=== PATIENT | female | born 1970 | race Caucasian/White ===

== ENCOUNTER 2017-11-19 02:34 | Emergency (ER) | payer MEDICARE, MEDICAID ==
[2017-11-19 03:49] LABS: % BASOPHILS 0.7 % (0.0-2.0); % EOSINOPHILS 2.7 % (0.0-5.0); % LYMPHOCYTES 25.2 % (20.0-50.0); % MONOCYTES 7.7 % (2.0-10.0); % NEUTROPHILS 63.7 % (40.0-80.0); EOSINOPHILE ABSOLUTE 0.2 Th/cmm (0.1-0.4); HEMATOCRIT 33.9 % (41.0-60); HEMOGLOBIN 11.2 gm/dL (12-16); LYMPHOCYTE ABSOLUTE 1.7 Th/cmm (1.5-3.0); MEAN CELL VOLUME 75.4 fl (81-100); MEAN CORPUSCULAR HGB CONC 33.1 pg (28.0-36.0); MONOCYTE ABSOLUTE 0.5 Th/cmm (0.3-1.0); NEUTROPHILE ABSOLUTE 4.5 Th/cmm (1.8-8.0); PLATELET COUNT 251 Th/cmm (150-400); RED CELL DISTRIBUTION WIDTH 16.9 % (11.5-20.0); WHITE BLOOD COUNT 6.9 Th/cmm (4.8-10.8)
--- NOTE | 2017-11-19 03:52 | ED Physician Chart ---
ED Chief Complaint/HPI - Patient Information Date Seen:: 11/19/17 Time Seen:: 02:47 Chief Complaint:: LOW BLOOD SUGARS History of Present Illness:: THIS IS A 47 YO FEMALE DIABETIC WHO IS CONCERN ABOUT HAVING A LOW BLOOD SUGAR EACH TIME THAT SHE GIVE HERSELF INSULIN. SHE ALSO STATES THAT SHE HAS HYPERTENSION AND IS OBESE. SHE ADMITS TO SMOKING AND DRINKING. SHE DENIES CHEST PAIN AND ABDOMINAL PAIN. Allergies:: Allergies Allergy/AdvReac Type Severity Reaction Status Date / Time No Known Allergies Allergy Verified 11/19/17 02:54 Vitals:: Vital Signs - 8 hr 11/19/17 02:35 Temp 97.9 F HR 100 RR 20 BP 106/65 O2 Sat % 100 Historian:: Patient Review:: Nurse's Note Reviewed ED Review of Systems - Review of Systems General/Constitutional: No fever, No chills, No weight loss, No weakness, No diaphoresis, No edema, No loss of appetite Skin: No skin lesions, No rash, No bruising Head: No headache, No light-headedness Eyes: No loss of vision, No pain, No diplopia ENT: No earache, No nasal drainage, No sore throat, No tinnitus Neck: No neck pain, No swelling, No thyromegaly, No stiffness, No mass noted Cardio Vascular: No chest pain, No palpitations, No PND, No orthopnea, No edema Pulmonary: No SOB, No cough, No sputum, No wheezing GI: No nausea, No vomiting, No diarrhea, No pain, No melena, No hematochezia, No constipation, No hematemesis G/U: No dysuria, No frequency, No hematuria Musculoskeletal: No bone or joint pain, No back pain, No muscle pain Endocrine: No polyuria, No polydipsia, Other (LOW SUGAR EPISODES AFTER SHE GIVES HERSELF INSULIN) Psychiatric: No prior psych history, No depression, No anxiety, No suicidal ideation Hematopoietic: No bruising, No lymphadenopathy Allergic/Immuno: No urticaria, No angioedema Neurological: No syncope, No focal symptoms, No weakness, No paresthesia, No headache, No seizure, No dizziness, No confusion, No vertigo ED Past Medical History - Past Medical History Obtainable: Yes Past Medical History: HTN, DM Family History: None Social History: Smoker, Alcohol, No Drug Use Surgical History: Cholecystectomy, , other (RIGHT KNEE SURGERY) Family Medical History - Family Member Mother History Unknown: Yes ED Physical Exam - Physical Examination General/Constitutional: Awake, Well-developed, well-nourished, Alert, No distress, GCS 15, Non-toxic appearing, Ambulatory Other Gen/Cons comments:: OBESE Head: Atraumatic Eyes: Lids, conjuctiva normal, PERRL, EOMI Skin: Nl inspection, No rash, No skin lesions, No ecchymosis, Well hydrated, No lymphadenopathy ENMT: External ears, nose nl, Nasal exam nl, Lips, teeth, gums nl Neck: Nontender, Full ROM w/o pain, No JVD, No nuchal rigidity, No bruit, No mass, No stridor Respiratory: Nl effort/Exclusion, Clear to Auscultation, No Wheeze/Rhonchi/Rales Cardio Vascular: RRR, No murmur, gallop, rubs, NL S1 S2 GI: No tenderness/rebounding/guarding, No organomegaly, No hernia, Normal BS's, Nondistended, No mass/bruits, No McBurney tenderness : No CVA tenderness Extremities: No tenderness or effusion, Full ROM, normal strength in all extremities, No edema, Normal digits & nails Neuro/Psych: Alert/oriented, DTR's symmetric, Normal sensory exam, Normal motor strength, Judgement/insight normal, Mood normal, Normal gait, No focal deficits Misc: Normal back, No paraspinal tenderness ED Labs/Radiology/EKG Results - Lab Results Results: Abnormal Lab Results 11/19/17 11/19/17 11/19/17 03:35 03:35 03:35 WBC 6.9 RBC 4.50 Hgb 11.2 L Hct 33.9 L MCV 75.4 L MCH 25.0 L MCHC Differential 33.1 RDW 16.9 Plt Count 251 MPV 9.0 Neutrophils % 63.7 Lymphocytes % 25.2 Monocytes % 7.7 Eosinophils % 2.7 Basophils % 0.7 Sodium 138 Potassium 3.1 L Chloride 108 H Carbon Dioxide 23.4 Anion Gap 9.7 BUN 11 Creatinine 0.9 Est GFR ( Amer) > 60.0 Est GFR (Non-Af Amer) > 60.0 BUN/Creatinine Ratio 12.2 Glucose 129 H Calcium 9.1 Total Bilirubin 0.3 AST 16 ALT 15 Alkaline Phosphatase 86 Troponin I < 0.01 L Total Protein 6.7 Albumin 3.6 L Globulin 3.1 Albumin/Globulin Ratio 1.2 ED Assessment - Assessment General Assessment: HYPOGLYCEMIC EPISODES HYPOKALEMIA ED Septic Shock - . Is Septic Shock (SBP<90, OR Lactate>4 mmol\L) present?: No - <6hrs of presentation: Vital Signs: Vital Signs - 8 hr 11/19/17 02:35 Temp 97.9 F HR 100 RR 20 BP 106/65 O2 Sat % 100 ED Reassessment (Disposition) - Reassessment Reassessment Condition:: Improved - Diagnosis Diagnosis:: HYPOGLYCEMIC EPISODE LOW POTASSIUM - Aftercare/Follow up Instructions Aftercare/Follow-Up Instructions:: Counseled pt regarding lab results/diagnosis & need follow up, Refer to Discharge Instructions, Counseled pt & family regarding lab results/diagnosis & need follow up Medication Prescribed:: THE PATIENT WAS TOLD TO REDUCE HER INSULIN DOSE TO 5 UNITS IN THE BID NOVALOG AND 20 UNITS OF NOVALIN. - Patient Disposition Discharge/Transfer:: Home Condition at Disposition:: Improved ED Discharge Plan - Patient Disposition Admit/Discharge/Transfer: PT DISCHARGED HOME Condition at Disposition: Improved
[2017-11-19 04:22] LABS: ALB/GLOB RATIO 1.2 (1.0-1.8); ALBUMIN 3.6 gm/dL (3.7-5.3); ALKALINE PHOSPHATASE 86 U/L (34-104); ANION GAP 9.7 (7.0-16.0); BILIRUBIN,TOTAL 0.3 mg/dL (0.3-1.0); BUN - UREA NITROGEN 11 mg/dL (7-25); CALCIUM SERUM 9.1 mg/dL (8.6-10.3); CARBON DIOXIDE 23.4 mEq/L (21.0-31.0); CHLORIDE 108 mEq/L (98-107); CREATININE - SERUM 0.9 mg/dL (0.6-1.2); GFR AFRICAN-AMERICAN > 60.0 ml/min (>90); GFR NON AFRICAN-AMERICAN > 60.0 ml/min; GLUCOSE 129 mg/dL (70-105); POTASSIUM SERUM 3.1 mEq/L (3.5-5.1); SGOT 16 U/L (13-39); SGPT/ALT 15 U/L (7-52); SODIUM SERUM 138 mEq/L (136-145); TOTAL PROTEIN,SERUM 6.7 gm/dL (6.0-8.3)
[2017-11-19] MEDS ORDERED: Potassium Chloride Elixir 20 mEq /15 mL UDC ONE (04:31)
[2017-11-19] MEDS: Potassium Chloride Elixir 20 mEq /15 mL UDC PO ONE (04:36)
[2017-11-19 06:50] LABS: URINE MICROSCOPIC INDICATED? YES; URINE SOURCE CLEAN C
[2017-11-19 06:55] LABS: URINE BILIRUBIN NEGATIVE (NEGATIVE); URINE BLOOD NEGATIVE (NEGATIVE); URINE GLUCOSE (UA) NEGATIVE (NEGATIVE); URINE KETONE NEGATIVE (NEGATIVE); URINE LEUKOCYTE ESTERASE TRACE (NEGATIVE); URINE NITRATE NEGATIVE (NEGATIVE); URINE PROTEIN NEGATIVE (NEGATIVE); URINE UROBILINOGEN 0.2 E.U./dL (0.2 - 1.0)
[2017-11-19 06:56] LABS: URINE CLARITY CLEAR (CLEAR); URINE COLOR YELLOW
[2017-11-19 06:59] LABS: URINE EPITHELIAL CELLS MODERATE /lpf (FEW); URINE RBC 0-2 /hpf (0-5)
[2017-11-19 07:00] LABS: URINE BACTERIA 1+ /hpf (NONE SEEN)
[2017-11-19 07:04] LABS: AMPHETAMINE URINE NEGATIVE (NEGATIVE); BARBITURATES URINE NEGATIVE (NEGATIVE); BENZODIAZEPINES QUAL URINE NEGATIVE (NEGATIVE); CANNABINOID THC POSITIVE (NEGATIVE); COCAINE METABOLITE QUAL URINE NEGATIVE (NEGATIVE); METHADONE URINE NEGATIVE (NEGATIVE); METHAMPHETAMINES QUAL URINE NEGATIVE (NEGATIVE); OPIATES (MORPHINE) QUAL. URINE NEGATIVE (NEGATIVE); PHENCYCLIDINE (PCP) URINE NEGATIVE (NEGATIVE); TRICYCLICS (TCA) QUAL. URINE NEGATIVE (NEGATIVE)
== END 2017-11-19 04:50 | disposition home or self-care (01) ==
LOC: ER 02:34
DX: E11.649 Type 2 diabetes mellitus with hypoglycemia without coma (principal); E87.6 Hypokalemia; I10 Essential (primary) hypertension; F17.200 Nicotine dependence, unspecified, uncomplicated; Z90.49 Acquired absence of other specified parts of digestive tract
CPT/HCPCS: 36415-UA; 80053-TC; 80307; 81001-TC; 82948-90; 84443-TC; 84484-TC; 85025-TC; Z7502

== ENCOUNTER 2017-11-19 23:52 | Emergency (ER) | payer MEDICARE, MEDICAID ==
--- NOTE | 2017-11-20 00:39 | ED Physician Chart ---
ED Chief Complaint/HPI - Patient Information Allergies:: Allergies Allergy/AdvReac Type Severity Reaction Status Date / Time No Known Allergies Allergy Verified 11/20/17 00:21 Vitals:: Vital Signs - 8 hr 11/19/17 23:55 Temp 98.1 F HR 102 RR 20 BP 137/90 O2 Sat % 100 Historian:: Medical Records Family Medical History - Family Member Mother History Unknown: Yes ED Septic Shock - . Is Septic Shock (SBP<90, OR Lactate>4 mmol\L) present?: No - <6hrs of presentation: Vital Signs: Vital Signs - 8 hr 11/19/17 23:55 Temp 98.1 F HR 102 RR 20 BP 137/90 O2 Sat % 100
== END 2017-11-20 03:00 | disposition home or self-care (01) ==
LOC: ER 23:52
DX: E11.649 Type 2 diabetes mellitus with hypoglycemia without coma (principal)
CPT/HCPCS: 82948-90

== ENCOUNTER 2017-11-25 12:30 | Emergency (ER) | payer MEDICARE, MEDICAID ==
[~2017-11-25 12:30] MED LIST: Dextrose 50% 50 mL Abboject IVP STA
[2017-11-25] MEDS ORDERED: Dextrose 50% 50 mL Abboject IVP ONE (12:37)
[2017-11-25 13:00] LABS: % EOSINOPHILS 2.1 % (0.0-5.0); % LYMPHOCYTES 31.7 % (20.0-50.0); % MONOCYTES 6.3 % (2.0-10.0); % NEUTROPHILS 59.9 % (40.0-80.0); EOSINOPHILE ABSOLUTE 0.2 Th/cmm (0.1-0.4); HEMATOCRIT 39.8 % (41.0-60); HEMOGLOBIN 12.6 gm/dL (12-16); LYMPHOCYTE ABSOLUTE 3.2 Th/cmm (1.5-3.0); MEAN CELL VOLUME 75.5 fl (81-100); MEAN CORPUSCULAR HEMOGLOBIN 23.8 pg (27.0-31.0); MEAN CORPUSCULAR HGB CONC 31.6 pg (28.0-36.0); MEAN PLATELET VOLUME 9.7 fl; MONOCYTE ABSOLUTE 0.6 Th/cmm (0.3-1.0); NEUTROPHILE ABSOLUTE 6.1 Th/cmm (1.8-8.0); PLATELET COUNT 184 Th/cmm (150-400); RED BLOOD COUNT 5.28 Mil/cmm (3.80-5.10); RED CELL DISTRIBUTION WIDTH 16.6 % (11.5-20.0); WHITE BLOOD COUNT 10.1 Th/cmm (4.8-10.8)
[2017-11-25 13:15] LABS: ALB/GLOB RATIO 1.1 (1.0-1.8); ALBUMIN 4.3 gm/dL (3.7-5.3); ALKALINE PHOSPHATASE 94 U/L (34-104); ANION GAP 12.2 (7.0-16.0); BILIRUBIN,TOTAL 0.4 mg/dL (0.3-1.0); BUN - UREA NITROGEN 10 mg/dL (7-25); CALCIUM SERUM 9.7 mg/dL (8.6-10.3); CHLORIDE 107 mEq/L (98-107); GFR AFRICAN-AMERICAN > 60.0 ml/min (>90); GFR NON AFRICAN-AMERICAN > 60.0 ml/min; POTASSIUM SERUM 3.2 mEq/L (3.5-5.1); SGOT 22 U/L (13-39); SGPT/ALT 19 U/L (7-52); SODIUM SERUM 139 mEq/L (136-145); TOTAL PROTEIN,SERUM 8.1 gm/dL (6.0-8.3)
[2017-11-25 13:19] LABS: GLUCOSE 47 mg/dL (70-105)
[2017-11-25] MEDS ORDERED: Potassium Chloride Elixir 20 mEq /15 mL UDC PO ONE (13:23)
--- NOTE | 2017-11-25 13:23 | ED Physician Chart ---
ED Chief Complaint/HPI - Patient Information Date Seen:: 11/25/17 Time Seen:: 12:39 Chief Complaint:: LOW SUGAR History of Present Illness:: THIS IS A 47 YO FEMALE WITH RECURRENT DIFFICULTY WITH MANAGEMENT OF HER GLUCOSE LEVELS. SHE WAS SEEN HERE TWICE IN ONE DAY FOR BLOOD SUGAR MANAGEMENT BUT HAS NOT FOLLOWUP WITH ADVICE GIVEN TO HER. SHE STATES THAT HER SUGAR HAS BEEN LOW. Allergies:: Allergies Allergy/AdvReac Type Severity Reaction Status Date / Time No Known Allergies Allergy Verified 11/20/17 00:21 Vitals:: Vital Signs - 8 hr 11/25/17 12:38 Temp 98.1 F HR 90 RR 18 BP 106/61 O2 Sat % 100 Historian:: Patient Review:: Nurse's Note Reviewed ED Review of Systems - Review of Systems General/Constitutional: No fever, No chills, No weight loss, No weakness, No diaphoresis, No edema, No loss of appetite Skin: No skin lesions, No rash, No bruising Head: No headache, No light-headedness Eyes: No loss of vision, No pain, No diplopia ENT: No earache, No nasal drainage, No sore throat, No tinnitus Neck: No neck pain, No swelling, No thyromegaly, No stiffness, No mass noted Cardio Vascular: No chest pain, No palpitations, No PND, No orthopnea, No edema Pulmonary: No SOB, No cough, No sputum, No wheezing GI: No nausea, No vomiting, No diarrhea, No pain, No melena, No hematochezia, No constipation, No hematemesis G/U: No dysuria, No frequency, No hematuria Musculoskeletal: No bone or joint pain, No back pain, No muscle pain Endocrine: No polyuria, No polydipsia Psychiatric: No prior psych history, No depression, No anxiety, No suicidal ideation Hematopoietic: No bruising, No lymphadenopathy Allergic/Immuno: No urticaria, No angioedema Neurological: No syncope, No focal symptoms, No weakness, No paresthesia, No headache, No seizure, No dizziness, No confusion, No vertigo ED Past Medical History - Past Medical History Obtainable: Yes Past Medical History: DM Family History: None Social History: Smoker, No Alcohol, Illicit Drug Use, Single Surgical History: None Psychiatricy History: None Medication: Reviewed Family Medical History - Family Member Mother History Unknown: Yes ED Physical Exam - Physical Examination General/Constitutional: Awake, Well-developed, well-nourished, Alert, No distress, GCS 15, Non-toxic appearing, Ambulatory Head: Atraumatic Eyes: Lids, conjuctiva normal, PERRL, EOMI Skin: Nl inspection, No rash, No skin lesions, No ecchymosis, Well hydrated, No lymphadenopathy ENMT: External ears, nose nl, Nasal exam nl, Lips, teeth, gums nl Neck: Nontender, Full ROM w/o pain, No JVD, No nuchal rigidity, No bruit, No mass, No stridor Respiratory: Nl effort/Exclusion, Clear to Auscultation, No Wheeze/Rhonchi/Rales Cardio Vascular: RRR, No murmur, gallop, rubs, NL S1 S2 GI: No tenderness/rebounding/guarding, No organomegaly, No hernia, Normal BS's, Nondistended, No mass/bruits, No McBurney tenderness : No CVA tenderness Extremities: No tenderness or effusion, Full ROM, normal strength in all extremities, No edema, Normal digits & nails Neuro/Psych: Alert/oriented, DTR's symmetric, Normal sensory exam, Normal motor strength, Judgement/insight normal, Mood normal, Normal gait, No focal deficits Misc: Normal back, No paraspinal tenderness ED Labs/Radiology/EKG Results - Lab Results Results: Laboratory Tests 11/25/17 11/25/17 11/25/17 12:45 12:45 12:45 WBC 10.1 RBC 5.28 H Hgb 12.6 Hct 39.8 L MCV 75.5 L MCH 23.8 L MCHC Differential 31.6 RDW 16.6 Plt Count 184 MPV 9.7 Neutrophils % 59.9 Lymphocytes % 31.7 Monocytes % 6.3 Eosinophils % 2.1 Basophils % 0.0 Sodium 139 Potassium 3.2 L Chloride 107 Carbon Dioxide 23.0 Anion Gap 12.2 BUN 10 Creatinine 1.0 Est GFR ( Amer) > 60.0 Est GFR (Non-Af Amer) > 60.0 BUN/Creatinine Ratio 10.0 Glucose 47 L* Calcium 9.7 Total Bilirubin 0.4 AST 22 ALT 19 Alkaline Phosphatase 94 Troponin I < 0.01 L Total Protein 8.1 Albumin 4.3 Globulin 3.8 Albumin/Globulin Ratio 1.1 ED Assessment - Assessment General Assessment: LOW BLOOD SUGAR ED Septic Shock - . Is Septic Shock (SBP<90, OR Lactate>4 mmol\L) present?: No - <6hrs of presentation: Vital Signs: Vital Signs - 8 hr 11/25/17 12:38 Temp 98.1 F HR 90 RR 18 BP 106/61 O2 Sat % 100 ED Reassessment (Disposition) - Reassessment Reassessment Condition:: Improved - Diagnosis Diagnosis:: HYPOGLYCEMIC EPISODE - Aftercare/Follow up Instructions Aftercare/Follow-Up Instructions:: Counseled pt regarding lab results/diagnosis & need follow up, Refer to Discharge Instructions, Counseled pt & family regarding lab results/diagnosis & need follow up - Patient Disposition Discharge/Transfer:: Home Condition at Disposition:: Improved ED Discharge Plan - Patient Disposition Instructions: Hypoglycemia (Low Blood Sugar)
[2017-11-25] MEDS ORDERED: Potassium Chloride 20 mEq ER Tab PO ONE (13:44)
[2017-11-25 14:46] LABS: AMPHETAMINE URINE NEGATIVE (NEGATIVE); BARBITURATES URINE NEGATIVE (NEGATIVE); BENZODIAZEPINES QUAL URINE NEGATIVE (NEGATIVE); CANNABINOID THC POSITIVE (NEGATIVE); COCAINE METABOLITE QUAL URINE NEGATIVE (NEGATIVE); METHADONE URINE NEGATIVE (NEGATIVE); METHAMPHETAMINES QUAL URINE NEGATIVE (NEGATIVE); OPIATES (MORPHINE) QUAL. URINE NEGATIVE (NEGATIVE); PHENCYCLIDINE (PCP) URINE NEGATIVE (NEGATIVE); TRICYCLICS (TCA) QUAL. URINE NEGATIVE (NEGATIVE)
== END 2017-11-25 15:05 | disposition home or self-care (01) ==
LOC: ER 12:30
DX: E11.649 Type 2 diabetes mellitus with hypoglycemia without coma (principal); F17.200 Nicotine dependence, unspecified, uncomplicated
CPT/HCPCS: 36415-UA; 80053-TC; 80307; 82948-90; 84443-TC; 84484-TC; 85025-TC; 96374; J7799; Z7502

== ENCOUNTER 2017-11-27 23:13 | Inpatient (IN) | payer MEDICARE, MEDICAID ==
--- NOTE | 2017-11-27 23:52 | ED Physician Chart ---
ED Chief Complaint/HPI - Patient Information Date Seen:: 11/27/17 Time Seen:: 23:48 Chief Complaint:: syncope History of Present Illness:: 47 yr old female with IDDM HERE FOR SYNCOPE Allergies:: Allergies Allergy/AdvReac Type Severity Reaction Status Date / Time No Known Allergies Allergy Verified 11/27/17 23:33 Vitals:: Vital Signs - 8 hr 11/27/17 23:20 Temp 98.4 F HR 83 RR 20 BP 122/69 O2 Sat % 98 Historian:: Patient, Family Member () ED Past Medical History - Past Medical History Past Medical History: DM Family Medical History - Family Member Mother History Unknown: Yes ED Physical Exam - Physical Examination General/Constitutional: Awake, Well-developed, well-nourished, Alert, No distress, GCS 15, Non-toxic appearing, Ambulatory Head: Atraumatic Eyes: Lids, conjuctiva normal, PERRL, EOMI Skin: Nl inspection, No rash, No skin lesions, No ecchymosis, Well hydrated, No lymphadenopathy ENMT: External ears, nose nl, Nasal exam nl, Lips, teeth, gums nl Neck: Nontender, Full ROM w/o pain, No JVD, No nuchal rigidity, No bruit, No mass, No stridor Respiratory: Nl effort/Exclusion, Clear to Auscultation, No Wheeze/Rhonchi/Rales Cardio Vascular: RRR, No murmur, gallop, rubs, NL S1 S2 GI: No tenderness/rebounding/guarding, No organomegaly, No hernia, Normal BS's, Nondistended, No mass/bruits, No McBurney tenderness : No CVA tenderness Extremities: No tenderness or effusion, Full ROM, normal strength in all extremities, No edema, Normal digits & nails Neuro/Psych: Alert/oriented, DTR's symmetric, Normal sensory exam, Normal motor strength, Judgement/insight normal, Mood normal, Normal gait, No focal deficits Misc: Normal back, No paraspinal tenderness ED Assessment - Assessment General Assessment: SYNCOPE HYPOGLYCEMIA ED Septic Shock - . Is Septic Shock (SBP<90, OR Lactate>4 mmol\L) present?: No - <6hrs of presentation: Vital Signs: Vital Signs - 8 hr 11/27/17 23:20 Temp 98.4 F HR 83 RR 20 BP 122/69 O2 Sat % 98 ED Reassessment (Disposition) - Patient Disposition Discharge/Transfer:: Acute Care w/in this hosp ED Discharge Plan - Patient Disposition Admit/Discharge/Transfer: Acute Care w/in this hosp Condition at Disposition: Improved
[2017-11-28 00:06] LABS: % BASOPHILS 0.7 % (0.0-2.0); % EOSINOPHILS 2.9 % (0.0-5.0); % LYMPHOCYTES 29.8 % (20.0-50.0); % MONOCYTES 7.3 % (2.0-10.0); % NEUTROPHILS 59.3 % (40.0-80.0); BASOPHILE ABSOLUTE 0.1 Th/cumm (0-0.2); EOSINOPHILE ABSOLUTE 0.2 Th/cmm (0.1-0.4); HEMATOCRIT 36.1 % (41.0-60); HEMOGLOBIN 11.7 gm/dL (12-16); LYMPHOCYTE ABSOLUTE 2.5 Th/cmm (1.5-3.0); MEAN CELL VOLUME 76.2 fl (81-100); MEAN CORPUSCULAR HEMOGLOBIN 24.8 pg (27.0-31.0); MEAN CORPUSCULAR HGB CONC 32.5 pg (28.0-36.0); MEAN PLATELET VOLUME 8.9 fl; MONOCYTE ABSOLUTE 0.6 Th/cmm (0.3-1.0); NEUTROPHILE ABSOLUTE 5.1 Th/cmm (1.8-8.0); PLATELET COUNT 300 Th/cmm (150-400); RED BLOOD COUNT 4.73 Mil/cmm (3.80-5.10); RED CELL DISTRIBUTION WIDTH 16.5 % (11.5-20.0); WHITE BLOOD COUNT 8.5 Th/cmm (4.8-10.8)
[2017-11-28 00:41] LABS: ANION GAP 12.4 (7.0-16.0); BUN - UREA NITROGEN 14 mg/dL (7-25); CARBON DIOXIDE 21.9 mEq/L (21.0-31.0); CHLORIDE 106 mEq/L (98-107); CREATININE - SERUM 0.8 mg/dL (0.6-1.2); GLUCOSE 120 mg/dL (70-105); POTASSIUM SERUM 3.3 mEq/L (3.5-5.1); SODIUM SERUM 137 mEq/L (136-145)
[2017-11-28 00:42] LABS: ALB/GLOB RATIO 1.1 (1.0-1.8); ALBUMIN 3.8 gm/dL (3.7-5.3); ALKALINE PHOSPHATASE 77 U/L (34-104); BILIRUBIN,TOTAL 0.4 mg/dL (0.3-1.0); CALCIUM SERUM 9.4 mg/dL (8.6-10.3); GFR AFRICAN-AMERICAN > 60.0 ml/min (>90); GFR NON AFRICAN-AMERICAN > 60.0 ml/min; SGOT 14 U/L (13-39); SGPT/ALT 16 U/L (7-52); TOTAL PROTEIN,SERUM 7.4 gm/dL (6.0-8.3)
[2017-11-28] MEDS ORDERED: D5-0.45NS 1,000 ML IV SCH (01:30)
[2017-11-28 05:12] LABS: URINE MICROSCOPIC INDICATED? YES; URINE SOURCE MIDSTREAM
[2017-11-28 05:12] LABS: % EOSINOPHILS 3.7 % (0.0-5.0); % LYMPHOCYTES 33.2 % (20.0-50.0); % MONOCYTES 7.1 % (2.0-10.0); BASOPHILE ABSOLUTE 0.1 Th/cumm (0-0.2); EOSINOPHILE ABSOLUTE 0.3 Th/cmm (0.1-0.4); HEMATOCRIT 34.8 % (41.0-60); HEMOGLOBIN 11.5 gm/dL (12-16); LYMPHOCYTE ABSOLUTE 2.7 Th/cmm (1.5-3.0); MEAN CELL VOLUME 75.8 fl (81-100); MEAN CORPUSCULAR HEMOGLOBIN 25.1 pg (27.0-31.0); MEAN CORPUSCULAR HGB CONC 33.1 pg (28.0-36.0); MEAN PLATELET VOLUME 9.5 fl; MONOCYTE ABSOLUTE 0.6 Th/cmm (0.3-1.0); NEUTROPHILE ABSOLUTE 4.3 Th/cmm (1.8-8.0); PLATELET COUNT 242 Th/cmm (150-400); RED CELL DISTRIBUTION WIDTH 16.9 % (11.5-20.0)
[2017-11-28 05:14] LABS: URINE BILIRUBIN NEGATIVE (NEGATIVE); URINE BLOOD NEGATIVE (NEGATIVE); URINE GLUCOSE (UA) NEGATIVE (NEGATIVE); URINE KETONE NEGATIVE (NEGATIVE); URINE LEUKOCYTE ESTERASE NEGATIVE (NEGATIVE); URINE NITRATE NEGATIVE (NEGATIVE); URINE PROTEIN NEGATIVE (NEGATIVE); URINE UROBILINOGEN 0.2 E.U./dL (0.2 - 1.0)
[2017-11-28 05:17] LABS: URINE BACTERIA FEW /hpf (NONE SEEN); URINE CLARITY CLEAR (CLEAR); URINE COLOR YELLOW; URINE EPITHELIAL CELLS MODERATE /lpf (FEW); URINE RBC 0-2 /hpf (0-5); URINE WBC 0-2 /hpf (0-5)
[2017-11-28 05:28] LABS: CHOLESTEROL 146 mg/dL (<200); HDL -HIGH DENSITY LIPOPROTEIN 30 mg/dL (23-92); TRIGLYCERIDES 159 mg/dL (<150)
--- NOTE | 2017-11-28 12:44 | History & Physical ---
ADMIT DATE: 11/28/2017 CHIEF COMPLAINT: Syncopal episode, recurrent hypoglycemia. HISTORY OF PRESENT ILLNESS: This is a 47-year-old lady who has been seen in the ED 3 times in the past for similar episodes of weakness and hypoglycemia. The patient apparently was seen a few days ago and was noted to have a glucose of 47, was stabilized and went back to her primary care doctor who apparently insisted on taking her regular dose of NovoLog and Novolin as scheduled. She currently takes 10 units of NovoLog t.i.d. and 30 units of Novolin b.i.d. on top of Glucophage 1000 mg t.i.d. The patient apparently had diabetes out of control about 6 months ago while living in [place] and was placed on a strict regimen with improvement of her symptomatology and her glucose readings. She reports levels up to 1400 while living over there, but after she relocated, she states that she has had improvement of her glucose levels secondary to diet and exercise. She was initially diagnosed with diabetes back in 2011. Pertinent findings prior to admission include a glucose level of 60 while at home and in the ED, her glucose level was noted to be 120. The patient was admitted overnight for close monitoring. She was placed on IV fluids and her diabetes medications were discontinued and currently she feels improved with glucometer readings around 120-130 level. PAST MEDICAL HISTORY: As noted above. Hypertension. PAST SURGICAL HISTORY: Include in 2002, cholecystectomy, also right knee multiple surgeries in 2013. FAMILY HISTORY: Noncontributory. SOCIAL HISTORY: Previous smoker. Denies any alcohol or illicit drug usage. She works with young adults in group homes. ALLERGIES: NKDA. OUTPATIENT MEDICATIONS: Metformin 1000 t.i.d. She also takes losartan/hydrochlorothiazide 100/12.5 once a day, Novolin 30 units b.i.d. and NovoLog 10 units t.i.d. REVIEW OF SYSTEMS: CONSTITUTIONAL: She does report intentional weight loss, she went from 300 pounds to 226 over the last 6 months. She denies any fever or chills. CARDIAC: No chest pain, palpitations. PULMONARY: Denies any cough or phlegm production. GASTROINTESTINAL: No bowel habit changes including no nausea, vomiting, diarrhea or abdominal pain. GENITOURINARY: No bladder habit changes. NEUROLOGIC: Please refer to HPI. PHYSICAL EXAMINATION: VITAL SIGNS: Temperature 96.5, pulse 74, respirations 19, BP 119/75, satting 94-98% on room air. GENERAL: She is a well-developed, morbidly obese female, currently awake, alert and oriented x 3, not in acute distress. HEAD AND NECK: Normocephalic, atraumatic. Pupils reactive to light. Extraocular movements are intact. Oropharynx moist and clear. CARDIOVASCULAR: Regular rate and rhythm without any murmurs. LUNGS: Clear to auscultation bilaterally. ABDOMEN: Soft, supple, nontender, nondistended, normoactive bowel sounds. EXTREMITIES: Lower extremities: No edema. LABORATORY DATA: On admission, H and H , otherwise within normal limits. Potassium was 3.3, otherwise within normal limits. Glucose 120. LFTs were within normal limits. UA was negative for ketones, negative for glucose, negative for protein, no signs of UTI. DIAGNOSTIC DATA: EKG sinus rhythm at a rate of 76. ASSESSMENT: 1. Recurrent hypoglycemic episode with syncope. 2. History of insulin-dependent diabetes with recent recurrent hypoglycemic episodes. 3. History of IDDM. 3. History of essential hypertension. 4. Morbid obesity. PLAN: The patient has been admitted to the tele cat for close monitoring and observation. The patient was placed on D5 half NS at 75 mL per hour, has remained consistent with decent glucose levels. At this time, I will discontinue her insulin regimen, i.e., Novolin and NovoLog since the patient reports that when she does not take these 2 medications, her sugars usually remained stable (around 130s range). She will be restarted on metformin 1000mg BID with meals. At this time, she is requesting to be discharged. She will follow with her primary care doctor within a few days. She was instructed to stop the Novolin and the NovoLog as noted above. JOB# [id number] JOVITA
--- NOTE | 2017-11-28 17:54 | Discharge Summary ---
DATE OF DISCHARGE: 11/28/2017 ADMITTING DIAGNOSES: 1. Recurrent hypoglycemia with a syncopal episode 2. Insulin-dependent diabetes with recurrent hypoglycemic episodes. SECONDARY DIAGNOSES: 1. Insulin-dependent diabetes. 2. Hypertension. 3. Morbid obesity. DISCHARGE DIAGNOSES: 1. Hypoglycemic episode with syncope -- clinically improved. 2. Hypoglycemia -- resolved. CONSULTANTS: There were no consultants used during this admission. DIAGNOSTICS: None. BRIEF HOSPITAL COURSE: The patient is a 47-year-old female who was diagnosed with diabetes back in 2011 and was basically out of control until a few months ago when she was placed on a regimen of Novolin 30 units b.i.d. and NovoLog 10 units t.i.d. in conjunction with Glucophage 1000 mg 3 times a day. She states that prior to being placed on that regimen, her glucose at one point was around 1400 and since then has gradually gotten better, but about 3 weeks ago, she started having hypoglycemic episodes and has visited Emergency Department for similar symptoms of weakness and hypoglycemia. She was instructed to follow up her primary care doctor, who apparently insisted on keeping her in her current regimen. Yesterday, she had a syncopal episode while at home and apparently she was noted to be 47. By the time went to the ED, her glucose had improved to a level of 120. Given the recurrent episodes and her recent history, she was admitted overnight for observation and close monitoring. Since been admitted, she has had glucose readings of around 120s to 130s and no longer reports weakness and/or syncope episodes. The patient was placed on D5 half NS at 75 and all her medications were withheld for the time being. DISCHARGE MEDICATIONS: Glucophage 1000 b.i.d. DISPOSITION: The patient was instructed to follow up her primary care doctor within 2-3 days. She also apparently has an endocrine evaluation in the upcoming few days. I also instructed her to eat at least 3 times a day, if not perhaps 5 small meals during the day. A dietary consult will be asked for prior to discharge. The patient also was instructed to come to the ED if her symptoms recur. JOB# [id number] JOVITA
[2017-11-28 19:32] LABS: A1C % 5.5 % (4.0-6.0)
== END 2017-11-28 12:15 | disposition home or self-care (01) | DRG 639 ==
LOC: ER 23:13 → TELE 11-28 01:20
PROVIDERS: ADMIT Internal Medicine; ATTEND Internal Medicine
DX: E11.649 Type 2 diabetes mellitus with hypoglycemia without coma (principal); E66.01 Morbid (severe) obesity due to excess calories; I10 Essential (primary) hypertension; Z68.37 Body mass index [BMI] 37.0-37.9, adult; Z90.49 Acquired absence of other specified parts of digestive tract; Z87.891 Personal history of nicotine dependence; Z79.4 Long term (current) use of insulin
CPT/HCPCS: 36415-UA; 80053-TC; 80061-TC; 81001-TC; 82948-90; 83036-90; 84443-TC; 85025-TC; 93005

== ENCOUNTER 2018-01-05 22:09 | Emergency (ER) | payer MEDICARE, MEDICAID ==
[2018-01-05] MEDS ORDERED: Triple Antibiotic 0.94 gm Pkt TP ONE (22:46)
--- NOTE | 2018-01-05 22:51 | ED Physician Chart ---
ED Chief Complaint/HPI - Patient Information Date Seen:: 01/05/18 Time Seen:: 22:10 Chief Complaint:: left knee and left ankle pain History of Present Illness:: left knee and left ankle pain s/p fall at her apartment complex because the lights are off. Allergies:: Allergies Allergy/AdvReac Type Severity Reaction Status Date / Time No Known Allergies Allergy Verified 01/05/18 22:10 Vitals:: Vital Signs - 8 hr 01/05/18 22:10 Temp 98.1 F HR 89 RR 18 BP 123/78 O2 Sat % 98 ED Review of Systems - Review of Systems General/Constitutional: No fever, No chills, No weight loss, No weakness, No diaphoresis, No edema, No loss of appetite Skin: No skin lesions, No rash, No bruising Head: No headache, No light-headedness Eyes: No loss of vision, No pain, No diplopia ENT: No earache, No nasal drainage, No sore throat, No tinnitus Neck: No neck pain, No swelling, No thyromegaly, No stiffness, No mass noted Cardio Vascular: No chest pain, No palpitations, No PND, No orthopnea, No edema Pulmonary: No SOB, No cough, No sputum, No wheezing GI: No nausea, No vomiting, No diarrhea, No pain, No melena, No hematochezia, No constipation, No hematemesis G/U: No dysuria, No frequency, No hematuria Musculoskeletal: Bone or joint pain Endocrine: No polyuria, No polydipsia Psychiatric: No prior psych history, No depression, No anxiety, No suicidal ideation Hematopoietic: No bruising, No lymphadenopathy, Other (left knee abrasion) Allergic/Immuno: No urticaria, No angioedema Neurological: No syncope, No focal symptoms, No weakness, No paresthesia, No headache, No seizure, No dizziness, No confusion, No vertigo Family Medical History - Family Member Mother History Unknown: Yes ED Physical Exam - Physical Examination General/Constitutional: Awake, Well-developed, well-nourished, Alert, No distress, GCS 15, Non-toxic appearing, Ambulatory Head: Atraumatic Eyes: Lids, conjuctiva normal, PERRL, EOMI Skin: Nl inspection, No rash, No skin lesions, No ecchymosis, Well hydrated, No lymphadenopathy ENMT: External ears, nose nl, Nasal exam nl, Lips, teeth, gums nl Neck: Nontender, Full ROM w/o pain, No JVD, No nuchal rigidity, No bruit, No mass, No stridor Respiratory: Nl effort/Exclusion, Clear to Auscultation, No Wheeze/Rhonchi/Rales Cardio Vascular: RRR, No murmur, gallop, rubs, NL S1 S2 GI: No tenderness/rebounding/guarding, No organomegaly, No hernia, Normal BS's, Nondistended, No mass/bruits, No McBurney tenderness : No CVA tenderness Extremities: No edema, Normal digits & nails Other Extremities comments:: left knee abrasion with pain to palpation. prominent patella. slightly swollen. positive pain. left ankle with medial and lateral swelling and tenderness NV intact Neuro/Psych: Alert/oriented, Normal sensory exam, Normal motor strength, Judgement/insight normal, Mood normal, Normal gait, No focal deficits Misc: Normal back, No paraspinal tenderness ED Assessment - Assessment General Assessment: xrays negative per my reading. doubt acute left patellar fracture (bone is too smooth and rounded) left knee with slight effusion. dystrohpic calcification behind the left knee. Assessment/Comments:: follow up with primary care physician to get an orthopedic referral if pain continues. cd to be provided to patient. ice packs on top of bandages at home to left knee and left ankle. ED Septic Shock - . Is Septic Shock (SBP<90, OR Lactate>4 mmol\L) present?: No - <6hrs of presentation: Vital Signs: Vital Signs - 8 hr 01/05/18 22:10 Temp 98.1 F HR 89 RR 18 BP 123/78 O2 Sat % 98 ED Reassessment (Disposition) - Reassessment Reassessment Condition:: Improved - Diagnosis Diagnosis:: left knee abrasion left knee effusion left ankle sprain - Aftercare/Follow up Instructions Medication Prescribed:: [place] 5/325 # 30 - Patient Disposition Discharge/Transfer:: Home Condition at Disposition:: Stable, Improved
--- NOTE | 2018-01-06 09:04 | Diagnostic Imaging Report ---
Left knee (3 views) HISTORY: Pain No acute abnormalities. No fractures. Spur formation noted off the anterior margins of the patella. IMPRESSION: No acute focal bony abnormalities
--- NOTE | 2018-01-06 09:04 | Diagnostic Imaging Report ---
Left ankle (3 views) HISTORY: Pain, trauma No acute abnormalities. No fractures. Joint spaces appear normal. Spur formation seen off the posterior margin of the calcaneus. IMPRESSION: 1. No acute abnormalities 2. Calcaneal spur formation In the presence of recent trauma and persistent symptoms, a repeat radiograph in 5-7 days may be helpful for detection of a subtle or occult fracture.
== END 2018-01-05 23:00 | disposition home or self-care (01) ==
LOC: ER 22:09
DX: S93.402A Sprain of unspecified ligament of left ankle, initial encounter (principal); S80.212A Abrasion, left knee, initial encounter; M25.462 Effusion, left knee; M25.472 Effusion, left ankle; W10.9XXA Fall (on) (from) unspecified stairs and steps, initial encounter; Y93.01 Activity, walking, marching and hiking; Y92.038 Other place in apartment as the place of occurrence of the external cause; Y99.8 Other external cause status
CPT/HCPCS: 99284; 73610; 73564; J1885; 73562-TC-LT; Z7502

== ENCOUNTER 2018-01-06 14:28 | Emergency (ER) | payer MEDICARE, MEDICAID ==
--- NOTE | 2018-01-06 15:07 | ED Physician Chart ---
ED Chief Complaint/HPI - Patient Information Date Seen:: 01/06/18 Time Seen:: 15:00 Chief Complaint:: left wrist pain History of Present Illness:: this patient was here yesterday after a fall at home and was treated, however her left wrist is now hurting more and she is concerned. Allergies:: Allergies Allergy/AdvReac Type Severity Reaction Status Date / Time No Known Allergies Allergy Verified 01/05/18 22:10 Vitals:: Vital Signs - 8 hr 01/06/18 14:42 Temp 97.8 F HR 82 RR 16 BP 121/78 O2 Sat % 100 Historian:: Patient Review:: Nurse's Note Reviewed ED Review of Systems - Review of Systems General/Constitutional: No fever, No chills, No weight loss, No weakness, No diaphoresis, No edema, No loss of appetite Skin: No skin lesions, No rash, No bruising Head: No headache, No light-headedness Eyes: No loss of vision, No pain, No diplopia ENT: No earache, No nasal drainage, No sore throat, No tinnitus Neck: No neck pain, No swelling, No thyromegaly, No stiffness, No mass noted Cardio Vascular: No chest pain, No palpitations, No PND, No orthopnea, No edema Pulmonary: No SOB, No cough, No sputum, No wheezing GI: No nausea, No vomiting, No diarrhea, No pain, No melena, No hematochezia, No constipation, No hematemesis G/U: No dysuria, No frequency, No hematuria Musculoskeletal: Bone or joint pain, No back pain, No muscle pain Endocrine: No polyuria, No polydipsia Psychiatric: No prior psych history, No depression, No anxiety, No suicidal ideation Hematopoietic: No bruising, No lymphadenopathy Allergic/Immuno: No urticaria, No angioedema Neurological: No syncope, No focal symptoms, No weakness, No paresthesia, No headache, No seizure, No dizziness, No confusion, No vertigo ED Past Medical History - Past Medical History Obtainable: Yes Past Medical History: No significant medical hx Family History: None Social History: Non Smoker, No Alcohol, No Drug Use Surgical History: other (right knee surgery) Family Medical History - Family Member Mother History Unknown: Yes ED Physical Exam - Physical Examination General/Constitutional: Awake, Well-developed, well-nourished, Alert, No distress, GCS 15, Non-toxic appearing, Ambulatory Head: Atraumatic Eyes: Lids, conjuctiva normal, PERRL, EOMI Skin: Nl inspection, No rash, No skin lesions, No ecchymosis, Well hydrated, No lymphadenopathy ENMT: External ears, nose nl, Nasal exam nl, Lips, teeth, gums nl Neck: Nontender, Full ROM w/o pain, No JVD, No nuchal rigidity, No bruit, No mass, No stridor Respiratory: Nl effort/Exclusion, Clear to Auscultation, No Wheeze/Rhonchi/Rales Cardio Vascular: RRR, No murmur, gallop, rubs, NL S1 S2 GI: No tenderness/rebounding/guarding, No organomegaly, No hernia, Normal BS's, Nondistended, No mass/bruits, No McBurney tenderness : No CVA tenderness Extremities: No tenderness or effusion, Full ROM, normal strength in all extremities, No edema, Normal digits & nails Other Extremities comments:: left wrist tender but not swollen Neuro/Psych: Alert/oriented, DTR's symmetric, Normal sensory exam, Normal motor strength, Judgement/insight normal, Mood normal, Normal gait, No focal deficits Misc: Normal back, No paraspinal tenderness ED Labs/Radiology/EKG Results - Radiology Results Results: left wrist x-rays= nad ED Assessment - Assessment General Assessment: sprain left wrist ED Septic Shock - . Is Septic Shock (SBP<90, OR Lactate>4 mmol\L) present?: No - <6hrs of presentation: Vital Signs: Vital Signs - 8 hr 01/06/18 14:42 Temp 97.8 F HR 82 RR 16 BP 121/78 O2 Sat % 100 ED Reassessment (Disposition) - Reassessment Reassessment Condition:: Improved - Diagnosis Diagnosis:: left wrist sprain - Aftercare/Follow up Instructions Aftercare/Follow-Up Instructions:: Counseled pt regarding lab results/diagnosis & need follow up, Refer to Discharge Instructions, Counseled pt & family regarding lab results/diagnosis & need follow up - Patient Disposition Discharge/Transfer:: Home Condition at Disposition:: Improved
--- NOTE | 2018-01-07 09:46 | Diagnostic Imaging Report ---
Left wrist 3 views Indication: pain Comparison: none Findings: There may have been previous old trauma to the distal radius. Osteopenia is suspected. No evidence of an acute fracture or focal soft tissue swelling. Impression: No evidence of an acute fracture. Osteopenia suspected. In the setting of trauma, if clinical symptoms persist and there is continued concern for an occult fracture, follow-up examination including MRI examination may be obtained for further assessment.
== END 2018-01-06 15:35 | disposition home or self-care (01) ==
LOC: ER 14:28
DX: S63.502A Unspecified sprain of left wrist, initial encounter (principal); W19.XXXA Unspecified fall, initial encounter; Y93.89 Activity, other specified; Y92.009 Unspecified place in unspecified non-institutional (private) residence as the place of occurrence of the external cause; Y99.8 Other external cause status
CPT/HCPCS: 73110-TC-LT; Z7502

== ENCOUNTER 2018-01-14 22:28 | Emergency (ER) | payer MEDICARE, MEDICAID ==
[2018-01-14 23:22] LABS: % BASOPHILS 0.3 % (0.0-2.0); % EOSINOPHILS 5.2 % (0.0-5.0); % LYMPHOCYTES 30.3 % (20.0-50.0); % NEUTROPHILS 59.2 % (40.0-80.0); EOSINOPHILE ABSOLUTE 0.5 Th/cmm (0.1-0.4); HEMATOCRIT 35.9 % (41.0-60); HEMOGLOBIN 11.7 gm/dL (12-16); LYMPHOCYTE ABSOLUTE 2.9 Th/cmm (1.5-3.0); MEAN CELL VOLUME 76.9 fl (81-100); MEAN CORPUSCULAR HGB CONC 32.5 pg (28.0-36.0); MEAN PLATELET VOLUME 9.1 fl; MONOCYTE ABSOLUTE 0.5 Th/cmm (0.3-1.0); NEUTROPHILE ABSOLUTE 5.7 Th/cmm (1.8-8.0); PLATELET COUNT 271 Th/cmm (150-400); RED BLOOD COUNT 4.67 Mil/cmm (3.80-5.10); RED CELL DISTRIBUTION WIDTH 15.2 % (11.5-20.0); WHITE BLOOD COUNT 9.6 Th/cmm (4.8-10.8)
[2018-01-14 23:38] LABS: ANION GAP 10.3 (7.0-16.0); BUN - UREA NITROGEN 9 mg/dL (7-25); CALCIUM SERUM 9.3 mg/dL (8.6-10.3); CARBON DIOXIDE 24.5 mEq/L (21.0-31.0); CHLORIDE 107 mEq/L (98-107); CREATININE - SERUM 0.8 mg/dL (0.6-1.2); GFR AFRICAN-AMERICAN > 60.0 ml/min (>90); GFR NON AFRICAN-AMERICAN > 60.0 ml/min; GLUCOSE 98 mg/dL (70-105); MAGNESIUM 1.9 mg/dL (1.9-2.7); PHOSPHOROUS 3.7 mg/dL (2.5-5.0); POTASSIUM SERUM 3.8 mEq/L (3.5-5.1); SODIUM SERUM 138 mEq/L (136-145)
[2018-01-14 23:43] LABS: AMPHETAMINE URINE NEGATIVE (NEGATIVE); BARBITURATES URINE NEGATIVE (NEGATIVE); BENZODIAZEPINES QUAL URINE NEGATIVE (NEGATIVE); CANNABINOID THC POSITIVE (NEGATIVE); COCAINE METABOLITE QUAL URINE NEGATIVE (NEGATIVE); METHADONE URINE NEGATIVE (NEGATIVE); METHAMPHETAMINES QUAL URINE NEGATIVE (NEGATIVE); OPIATES (MORPHINE) QUAL. URINE NEGATIVE (NEGATIVE); PHENCYCLIDINE (PCP) URINE NEGATIVE (NEGATIVE); TRICYCLICS (TCA) QUAL. URINE NEGATIVE (NEGATIVE)
[2018-01-14 23:56] LABS: DDIMER QUANT 900 ng/mL (100-400)
--- NOTE | 2018-01-14 23:58 | ED Physician Chart ---
ED Chief Complaint/HPI - Patient Information Date Seen:: 01/14/18 Time Seen:: 22:30 Chief Complaint:: left sided chest pain History of Present Illness:: left sided chest pain at least 8 times today. continues to smoke 6 cigarettes per hour to relax her so that she doesn't need to start taking her anxiety medications again. Allergies:: Allergies Allergy/AdvReac Type Severity Reaction Status Date / Time No Known Allergies Allergy Verified 01/14/18 22:50 Vitals:: Vital Signs - 8 hr 01/14/18 01/14/18 22:30 23:20 Temp 98.1 F 98.0 F HR 82 78 RR 18 18 BP 122/79 128/79 O2 Sat % 99 98 Historian:: Patient Review:: Nurse's Note Reviewed ED Review of Systems - Review of Systems General/Constitutional: No fever, No chills, No weight loss, No weakness, No diaphoresis, No edema, No loss of appetite Skin: No skin lesions, No rash, No bruising Head: No headache, No light-headedness Eyes: No loss of vision, No pain, No diplopia ENT: No earache, No nasal drainage, No sore throat, No tinnitus Neck: No neck pain, No swelling, No thyromegaly, No stiffness, No mass noted Cardio Vascular: Chest pain Pulmonary: No SOB, No cough, No sputum, No wheezing GI: No nausea, No vomiting, No diarrhea, No pain, No melena, No hematochezia, No constipation, No hematemesis G/U: No dysuria, No frequency, No hematuria Musculoskeletal: No bone or joint pain, No back pain, No muscle pain Endocrine: No polyuria, No polydipsia Psychiatric: No prior psych history, No depression, No anxiety, No suicidal ideation Hematopoietic: No bruising, No lymphadenopathy Allergic/Immuno: No urticaria, No angioedema Neurological: No syncope, No focal symptoms, No weakness, No paresthesia, No headache, No seizure, No dizziness, No confusion, No vertigo ED Past Medical History - Past Medical History Obtainable: Yes Past Medical History: Other (nicotine addiction; unknown heart condition according to her PCP from years ago who placed her on aspirin only) Social History: Smoker Surgical History: other (tubal ligation and gastric bypass surgery) Psychiatricy History: Bipolar, Other (anxiety) Family Medical History - Family Member Mother History Unknown: Yes ED Physical Exam - Physical Examination General/Constitutional: Awake, Well-developed, well-nourished, Alert, No distress, GCS 15, Non-toxic appearing, Ambulatory Other Gen/Cons comments:: obese Head: Atraumatic Eyes: Lids, conjuctiva normal, PERRL, EOMI Skin: Nl inspection, No rash, No skin lesions, No ecchymosis, Well hydrated, No lymphadenopathy ENMT: External ears, nose nl Neck: Nontender, Full ROM w/o pain, No JVD, No nuchal rigidity, No bruit, No mass, No stridor Respiratory: Nl effort/Exclusion, Clear to Auscultation, No Wheeze/Rhonchi/Rales Cardio Vascular: RRR, No murmur, gallop, rubs, NL S1 S2 Other Cardio Vascular comments:: no external chest pain to palpation. GI: No tenderness/rebounding/guarding Other Extremities comments:: left knee scab has nearly 100% healed. R knee with widened scar from previous R knee replacement which dehisced and became infected. Neuro/Psych: Alert/oriented, Normal sensory exam, Normal motor strength, Judgement/insight normal, Mood normal, Normal gait, No focal deficits Misc: Normal back, No paraspinal tenderness ED Labs/Radiology/EKG Results - Lab Results Results: Laboratory Tests 01/14/18 01/14/18 01/14/18 23:05 23:10 23:10 WBC RBC Hgb Hct MCV MCH MCHC Differential RDW Plt Count MPV Neutrophils % Lymphocytes % Monocytes % Eosinophils % Basophils % Sodium 138 Potassium 3.8 Chloride 107 Carbon Dioxide 24.5 Anion Gap 10.3 BUN 9 Creatinine 0.8 Est GFR ( Amer) > 60.0 Est GFR (Non-Af Amer) > 60.0 BUN/Creatinine Ratio 11.3 Glucose 98 Calcium 9.3 Phosphorus 3.7 Magnesium 1.9 Troponin I 0.01 Urine Opiates Screen NEGATIVE Urine Methadone Screen NEGATIVE Ur Barbiturates Screen NEGATIVE Ur Tricyclics Screen NEGATIVE Ur Phencyclidine Scrn NEGATIVE Amphetamines Screen NEGATIVE U Methamphetamines Scrn NEGATIVE U Benzodiazepines Scrn NEGATIVE U Cocaine Metab Screen NEGATIVE U Cannabinoids Screen POSITIVE H 01/14/18 23:10 WBC 9.6 RBC 4.67 Hgb 11.7 L Hct 35.9 L MCV 76.9 L MCH 25.0 L MCHC Differential 32.5 RDW 15.2 Plt Count 271 MPV 9.1 Neutrophils % 59.2 Lymphocytes % 30.3 Monocytes % 5.0 Eosinophils % 5.2 H Basophils % 0.3 Sodium Potassium Chloride Carbon Dioxide Anion Gap BUN Creatinine Est GFR ( Amer) Est GFR (Non-Af Amer) BUN/Creatinine Ratio Glucose Calcium Phosphorus Magnesium Troponin I Urine Opiates Screen Urine Methadone Screen Ur Barbiturates Screen Ur Tricyclics Screen Ur Phencyclidine Scrn Amphetamines Screen U Methamphetamines Scrn U Benzodiazepines Scrn U Cocaine Metab Screen U Cannabinoids Screen ED Assessment - Assessment General Assessment: resting comfortably. EKG from 11:17:38 p.m. reveals normal sinus rhythm with no ischemic changes. CXR: NAD. RLL atelectasis. CT angiogram: no pulmonary embolus; no thoracic aortic dissection or aneurysm; lungs are clear; no pleural effusion or pneumothorax. heart and pericardium are unremarkable. upper abdomen demonstrates prior cholecytectomy. Question early liver cirrhosis. No acute osseous abnormality. Assessment/Comments:: had sharp chest pain on the left while in the ER. ED Septic Shock - . Is Septic Shock (SBP<90, OR Lactate>4 mmol\L) present?: No - <6hrs of presentation: Vital Signs: Vital Signs - 8 hr 01/14/18 01/14/18 22:30 23:20 Temp 98.1 F 98.0 F HR 82 78 RR 18 18 BP 122/79 128/79 O2 Sat % 99 98 ED Reassessment (Disposition) - Reassessment Reassessment Condition:: Improved - Diagnosis Diagnosis:: Pleuritic chest pain Nicotine addiction Bipolar disorder Anxiety - Aftercare/Follow up Instructions Notes:: please follow up with your primary care physician stop smoking Medication Prescribed:: none - Patient Disposition Discharge/Transfer:: Home Condition at Disposition:: Stable, Improved
[2018-01-15] MEDS ORDERED: IOHEXOL 350mgI/mL 150mL IV ONE (00:19)
--- NOTE | 2018-01-15 08:22 | Diagnostic Imaging Report ---
CT angiogram of the chest with intravenous contrast (CTA) HISTORY: Chest pain Total DLP equals 299 CTDI equals 19.0 Following administration of intravenous contrast, axial sections were obtained from a level above the clavicles down to level below the diaphragm. The heart size is normal. There is normal opacification of the main, right, and left pulmonary arteries. No intraluminal filling defects are seen. Specifically, no evidence of pulmonary embolism. No abnormal mediastinal masses. The hilar regions are unremarkable. No abnormal focal pulmonary parenchymal processes. No pleural fluid. IMPRESSION: 1. No acute abnormalities. No evidence of pulmonary embolism
--- NOTE | 2018-01-15 08:28 | Diagnostic Imaging Report ---
Portable chest x-ray History: Pain Allowing for portable technique the heart size is normal. No focal pulmonary parenchymal processes. No hilar or mediastinal abnormalities. Impression: No acute abnormalities.
== END 2018-01-15 02:20 | disposition home or self-care (01) ==
LOC: ER 22:28
DX: R07.81 Pleurodynia (principal); F31.9 Bipolar disorder, unspecified; F41.9 Anxiety disorder, unspecified; F17.210 Nicotine dependence, cigarettes, uncomplicated; Z96.651 Presence of right artificial knee joint
CPT/HCPCS: 36415-UA; 71045-TC; 71275-TC; 80048-TC; 80307; 83735-TC; 84100-TC; 84484-TC; 85025-TC; 85379-TC; 93005

== ENCOUNTER 2018-03-02 17:15 | Emergency (ER) | payer MEDICARE, MEDICAID ==
--- NOTE | 2018-03-02 18:37 | ED Physician Chart ---
ED Chief Complaint/HPI - Patient Information Date Seen:: 03/02/18 Time Seen:: 17:32 Chief Complaint:: temporal headache History of Present Illness:: temporal headache not associated with any visual complaints or focal deficits. Has had them in the past. Allergies:: Allergies Allergy/AdvReac Type Severity Reaction Status Date / Time No Known Allergies Allergy Verified 03/02/18 17:31 Vitals:: Vital Signs - 8 hr 03/02/18 17:32 Temp 97.1 F HR 85 RR 18 BP 146/86 O2 Sat % 97 Historian:: Patient, Family Member Review:: Nurse's Note Reviewed ED Review of Systems - Review of Systems General/Constitutional: No fever, No chills, No weight loss, No weakness, No diaphoresis, No edema, No loss of appetite Skin: No skin lesions, No rash, No bruising Head: Headache Eyes: No loss of vision, No pain, No diplopia ENT: No earache, No nasal drainage, No sore throat, No tinnitus Neck: No neck pain, No swelling, No thyromegaly, No stiffness, No mass noted Cardio Vascular: No chest pain, No palpitations, No PND, No orthopnea, No edema Pulmonary: No SOB, No cough, No sputum, No wheezing GI: No nausea, No vomiting, No diarrhea, No pain, No melena, No hematochezia, No constipation, No hematemesis G/U: No dysuria, No frequency, No hematuria Musculoskeletal: No bone or joint pain, No back pain, No muscle pain Endocrine: No polyuria, No polydipsia Psychiatric: No prior psych history, No depression, No anxiety, No suicidal ideation Hematopoietic: No bruising, No lymphadenopathy Allergic/Immuno: No urticaria, No angioedema Neurological: No syncope, No focal symptoms, No weakness, No paresthesia, No headache, No seizure, No dizziness, No confusion, No vertigo ED Past Medical History - Past Medical History Obtainable: Yes Past Medical History: DM, Other (recurrent headaches) Family Medical History - Family Member Mother History Unknown: Yes Hx Family Hypertension: Yes Hx Family Diabetes: Yes ED Physical Exam - Physical Examination General/Constitutional: Awake, Well-developed, well-nourished, Alert, No distress, GCS 15, Non-toxic appearing, Ambulatory Head: Atraumatic Eyes: Lids, conjuctiva normal, PERRL, EOMI Skin: Nl inspection, Well hydrated ENMT: External ears, nose nl, TM canals nl Other ENMT comments:: no pain with fingers inserted into each external auditory canal. Neck: Nontender, No nuchal rigidity Respiratory: Nl effort/Exclusion, Clear to Auscultation Cardio Vascular: RRR Other Extremities comments:: scar and swelling present on R knee. Neuro/Psych: Alert/oriented, Normal sensory exam, Normal motor strength, Judgement/insight normal, Mood normal, Normal gait, No focal deficits Misc: Normal back, No paraspinal tenderness ED Labs/Radiology/EKG Results - Lab Results Results: Laboratory Tests 03/02/18 17:30 POC Glucose 77 ED Assessment - Assessment General Assessment: patient states that her headache is gone now that she had two injections given to her. ED Septic Shock - . Is Septic Shock (SBP<90, OR Lactate>4 mmol\L) present?: No - <6hrs of presentation: Vital Signs: Vital Signs - 8 hr 03/02/18 17:32 Temp 97.1 F HR 85 RR 18 BP 146/86 O2 Sat % 97 ED Reassessment (Disposition) - Reassessment Reassessment Condition:: Improved - Diagnosis Diagnosis:: Tension headache - Aftercare/Follow up Instructions Aftercare/Follow-Up Instructions:: Refer to Discharge Instructions Notes:: follow up with your primary care physician as needed. Medication Prescribed:: none - Patient Disposition Discharge/Transfer:: Home Condition at Disposition:: Stable, Improved
== END 2018-03-02 18:30 | disposition home or self-care (01) ==
LOC: ER 17:15
DX: G44.209 Tension-type headache, unspecified, not intractable (principal); M25.461 Effusion, right knee; E11.9 Type 2 diabetes mellitus without complications
CPT/HCPCS: 99284; 96372 ×2; 36416; 82948; J1885; J2930; Z7502

== ENCOUNTER 2018-03-13 23:51 | Emergency (ER) | payer MEDICARE, MEDICAID ==
[2018-03-14] MEDS ORDERED: Ipratropium Neb 0.5 mg/2.5 mL UD HHN STA (00:10)
[2018-03-14] MEDS ORDERED: Albuterol Nebulizer 2.5mg/3mL HHN STA (00:10)
[2018-03-14] MEDS ORDERED: Ipratropium Neb 0.5 mg/2.5 mL UD HHN ONE (00:19)
[2018-03-14] MEDS ORDERED: Albuterol Nebulizer 2.5mg/3mL HHN ONE (00:19)
[2018-03-14 00:31] LABS: % BASOPHILS 0.1 % (0.0-2.0); % EOSINOPHILS 3.7 % (0.0-5.0); % LYMPHOCYTES 27.6 % (20.0-50.0); % MONOCYTES 4.8 % (2.0-10.0); % NEUTROPHILS 63.8 % (40.0-80.0); EOSINOPHILE ABSOLUTE 0.4 Th/cmm (0.1-0.4); HEMOGLOBIN 12.7 gm/dL (12-16); LYMPHOCYTE ABSOLUTE 3.1 Th/cmm (1.5-3.0); MEAN CELL VOLUME 76.6 fl (81-100); MEAN CORPUSCULAR HEMOGLOBIN 25.7 pg (27.0-31.0); MEAN CORPUSCULAR HGB CONC 33.5 pg (28.0-36.0); MEAN PLATELET VOLUME 8.8 fl; MONOCYTE ABSOLUTE 0.5 Th/cmm (0.3-1.0); NEUTROPHILE ABSOLUTE 7.2 Th/cmm (1.8-8.0); PLATELET COUNT 274 Th/cmm (150-400); RED BLOOD COUNT 4.96 Mil/cmm (3.80-5.10); RED CELL DISTRIBUTION WIDTH 15.1 % (11.5-20.0); WHITE BLOOD COUNT 11.2 Th/cmm (4.8-10.8)
[2018-03-14 00:48] LABS: ALBUMIN 3.9 gm/dL (3.7-5.3); ALKALINE PHOSPHATASE 85 U/L (34-104); ANION GAP 14.6 (7.0-16.0); BILIRUBIN,TOTAL 0.2 mg/dL (0.3-1.0); BUN - UREA NITROGEN 11 mg/dL (7-25); CALCIUM SERUM 9.1 mg/dL (8.6-10.3); CARBON DIOXIDE 21.1 mEq/L (21.0-31.0); CHLORIDE 105 mEq/L (98-107); CREATININE - SERUM 0.8 mg/dL (0.6-1.2); GFR AFRICAN-AMERICAN > 60.0 ml/min (>90); GFR NON AFRICAN-AMERICAN > 60.0 ml/min; GLUCOSE 113 mg/dL (70-105); POTASSIUM SERUM 3.7 mEq/L (3.5-5.1); SGOT 10 U/L (13-39); SGPT/ALT 8 U/L (7-52); SODIUM SERUM 137 mEq/L (136-145); TOTAL PROTEIN,SERUM 7.7 gm/dL (6.0-8.3)
--- NOTE | 2018-03-14 01:13 | ED Physician Chart ---
ED Chief Complaint/HPI - Patient Information Date Seen:: 03/14/18 Time Seen:: 01:09 Chief Complaint:: Cough History of Present Illness:: 48 yo female had cough with green mucous and shortness of breath for 1 week worsened for 1 day. Patient had body ache. Allergies:: Allergies Allergy/AdvReac Type Severity Reaction Status Date / Time No Known Allergies Allergy Verified 03/02/18 17:31 Vitals:: Vital Signs - 8 hr 03/13/18 03/14/18 23:55 00:24 Temp 98.0 F HR 92 92 RR 20 20 BP 121/75 O2 Sat % 96 95 ED Review of Systems - Review of Systems General/Constitutional: No fever, Chills Skin: No rash Head: No headache Neck: No neck pain Cardio Vascular: Chest pain Pulmonary: SOB, Cough GI: Nausea, No vomiting Musculoskeletal: Muscle pain Neurological: No focal symptoms ED Past Medical History - Past Medical History Past Medical History: DM Social History: Smoker, No Alcohol, No Drug Use Surgical History: Cholecystectomy, (x 1), other (right knee surgery) Family Medical History - Family Member Mother History Unknown: Yes Hx Family Hypertension: Yes Hx Family Diabetes: Yes ED Physical Exam - Physical Examination General/Constitutional: Awake, Alert Eyes: PERRL Skin: No ecchymosis ENMT: Nasal exam nl Neck: No nuchal rigidity Other Respiratory comments:: Mild rhonchi Cardio Vascular: RRR, No murmur, gallop, rubs, NL S1 S2 GI: No tenderness/rebounding/guarding Extremities: normal strength in all extremities, No edema Neuro/Psych: No focal deficits ED Labs/Radiology/EKG Results - Lab Results Results: Laboratory Tests 03/14/18 03/14/18 00:20 00:20 WBC 11.2 H RBC 4.96 Hgb 12.7 Hct 38.0 L MCV 76.6 L MCH 25.7 L MCHC Differential 33.5 RDW 15.1 Plt Count 274 MPV 8.8 Neutrophils % 63.8 Lymphocytes % 27.6 Monocytes % 4.8 Eosinophils % 3.7 Basophils % 0.1 Sodium 137 Potassium 3.7 Chloride 105 Carbon Dioxide 21.1 Anion Gap 14.6 BUN 11 Creatinine 0.8 Est GFR ( Amer) > 60.0 Est GFR (Non-Af Amer) > 60.0 BUN/Creatinine Ratio 13.8 Glucose 113 H Calcium 9.1 Total Bilirubin 0.2 L AST 10 L ALT 8 Alkaline Phosphatase 85 Total Protein 7.7 Albumin 3.9 Globulin 3.8 Albumin/Globulin Ratio 1.0 - Radiology Results Results: CXR: no focal consolidation ED Assessment - Assessment General Assessment: Bronchitis Leukocytosis Assessment/Comments:: CBC, CMP CXR Albuterol Neb Atrovent Neb Rocephin 1g IM Azithromycin 500mg PO D/c home Azithromycin 250mg PO qd x 4 F/u PCP or return to ER if symptoms worsen ED Septic Shock - . Is Septic Shock (SBP<90, OR Lactate>4 mmol\L) present?: No - <6hrs of presentation: Vital Signs: Vital Signs - 8 hr 03/13/18 03/14/18 23:55 00:24 Temp 98.0 F HR 92 92 RR 20 20 BP 121/75 O2 Sat % 96 95 ED Reassessment (Disposition) - Reassessment Reassessment Condition:: Improved - Patient Disposition Discharge/Transfer:: Home
[2018-03-14] MEDS ORDERED: cefTRIAXone 1 GM in Sodium Chloride 0.9% 50 ML IV ONE (01:16)
--- NOTE | 2018-03-14 08:17 | Diagnostic Imaging Report ---
Portable chest x-ray Time: 00 50 History: Cough Allowing for portable technique the heart size is normal. No focal pulmonary parenchymal processes. No hilar or mediastinal abnormalities. Impression: No acute abnormalities.
== END 2018-03-14 01:40 | disposition home or self-care (01) ==
LOC: ER 23:51
DX: J40 Bronchitis, not specified as acute or chronic (principal); D72.829 Elevated white blood cell count, unspecified; E11.9 Type 2 diabetes mellitus without complications; F17.200 Nicotine dependence, unspecified, uncomplicated; Z90.49 Acquired absence of other specified parts of digestive tract; Z98.890 Other specified postprocedural states
CPT/HCPCS: 99285; 96372; 36415; 85025; 80053; 71045; 94640; J0696; 90779; J7613

== ENCOUNTER 2018-04-14 00:54 | Emergency (ER) | payer MEDICARE, MEDICAID ==
[2018-04-14] MEDS: Lactated Ringer 1,000 ML IV ONE (02:00)
[2018-04-14 02:12] LABS: % BASOPHILS 0.3 % (0.0-2.0); % EOSINOPHILS 5.8 % (0.0-5.0); % NEUTROPHILS 61.9 % (40.0-80.0); EOSINOPHILE ABSOLUTE 0.6 Th/cmm (0.1-0.4); HEMATOCRIT 38.5 % (41.0-60); HEMOGLOBIN 12.4 gm/dL (12-16); LYMPHOCYTE ABSOLUTE 2.9 Th/cmm (1.5-3.0); MEAN CELL VOLUME 77.5 fl (81-100); MEAN CORPUSCULAR HEMOGLOBIN 25.1 pg (27.0-31.0); MEAN CORPUSCULAR HGB CONC 32.3 pg (28.0-36.0); MEAN PLATELET VOLUME 9.2 fl; MONOCYTE ABSOLUTE 0.4 Th/cmm (0.3-1.0); NEUTROPHILE ABSOLUTE 6.3 Th/cmm (1.8-8.0); PLATELET COUNT 254 Th/cmm (150-400); RED BLOOD COUNT 4.97 Mil/cmm (3.80-5.10); RED CELL DISTRIBUTION WIDTH 15.7 % (11.5-20.0); WHITE BLOOD COUNT 10.2 Th/cmm (4.8-10.8)
[2018-04-14 02:27] LABS: ALB/GLOB RATIO 1.1 (1.0-1.8); ALBUMIN 4.2 gm/dL (3.7-5.3); ALKALINE PHOSPHATASE 92 U/L (34-104); AMYLASE SERUM 56 U/L (29-103); ANION GAP 13.5 (7.0-16.0); BILIRUBIN,TOTAL 0.4 mg/dL (0.3-1.0); BUN - UREA NITROGEN 16 mg/dL (7-25); CALCIUM SERUM 9.7 mg/dL (8.6-10.3); CARBON DIOXIDE 24.4 mEq/L (21.0-31.0); CHLORIDE 105 mEq/L (98-107); CREATININE - SERUM 0.8 mg/dL (0.6-1.2); GFR AFRICAN-AMERICAN > 60.0 ml/min (>90); GFR NON AFRICAN-AMERICAN > 60.0 ml/min; GLUCOSE 102 mg/dL (70-105); LIPASE 17 U/L (11-82); PHOSPHOROUS 3.8 mg/dL (2.5-5.0); POTASSIUM SERUM 3.9 mEq/L (3.5-5.1); SGOT 13 U/L (13-39); SGPT/ALT 8 U/L (7-52); SODIUM SERUM 139 mEq/L (136-145); TOTAL PROTEIN,SERUM 7.9 gm/dL (6.0-8.3)
--- NOTE | 2018-04-14 02:49 | ED Physician Chart ---
ED Chief Complaint/HPI - Patient Information Date Seen:: 04/14/18 Time Seen:: 01:05 Chief Complaint:: nausea for a week & occas epig pain History of Present Illness:: nausea for a week & occas epig pain has continued to pass gas and have bowel movements. Allergies:: Allergies Allergy/AdvReac Type Severity Reaction Status Date / Time No Known Allergies Allergy Verified 04/14/18 01:09 Vitals:: Vital Signs - 8 hr 04/14/18 01:05 Temp 98.1 F HR 89 RR 18 BP 137/72 O2 Sat % 97 Historian:: Patient Review:: Nurse's Note Reviewed ED Review of Systems - Review of Systems General/Constitutional: No fever, No chills, No weight loss, No weakness, No diaphoresis, No edema, No loss of appetite Skin: No skin lesions, No rash, No bruising Head: No headache, No light-headedness Eyes: No loss of vision, No pain, No diplopia ENT: No earache, No nasal drainage, No sore throat, No tinnitus Neck: No neck pain, No swelling, No thyromegaly, No stiffness, No mass noted Cardio Vascular: No chest pain, No palpitations, No PND, No orthopnea, No edema Pulmonary: No SOB, No cough, No sputum, No wheezing GI: Nausea, No vomiting, No diarrhea, Pain, No melena, No hematochezia, No constipation, No hematemesis G/U: No dysuria, No frequency, No hematuria Musculoskeletal: No bone or joint pain, No back pain, No muscle pain Endocrine: No polyuria, No polydipsia Psychiatric: No prior psych history, No depression, No anxiety, No suicidal ideation Hematopoietic: No bruising, No lymphadenopathy Allergic/Immuno: No urticaria, No angioedema Neurological: No syncope, No focal symptoms, No weakness, No paresthesia, No headache, No seizure, No dizziness, No confusion, No vertigo ED Past Medical History - Past Medical History Obtainable: Yes Surgical History: Cholecystectomy, , other (tubal ligation) Family Medical History - Family Member Mother History Unknown: Yes Hx Family Hypertension: Yes Hx Family Diabetes: Yes ED Physical Exam - Physical Examination General/Constitutional: Awake, Well-developed, well-nourished, Alert, No distress, GCS 15, Non-toxic appearing, Ambulatory Other Gen/Cons comments:: overweight Head: Atraumatic Eyes: Lids, conjuctiva normal, PERRL, EOMI Skin: Nl inspection, No rash, No skin lesions, No ecchymosis, Well hydrated, No lymphadenopathy ENMT: External ears, nose nl Neck: Nontender, No nuchal rigidity, No stridor Respiratory: Nl effort/Exclusion, Clear to Auscultation, No Wheeze/Rhonchi/Rales Cardio Vascular: RRR, No murmur, gallop, rubs, NL S1 S2 GI: No tenderness/rebounding/guarding, No organomegaly, No hernia, Normal BS's, Nondistended, No mass/bruits, No McBurney tenderness Other GI comments:: NO PERITONEAL SIGNS : No CVA tenderness Extremities: No tenderness or effusion, Full ROM, normal strength in all extremities, No edema, Normal digits & nails Neuro/Psych: Alert/oriented, Normal sensory exam, Normal motor strength, Judgement/insight normal, Mood normal, Normal gait, No focal deficits Misc: Normal back, No paraspinal tenderness ED Labs/Radiology/EKG Results - Lab Results Results: Laboratory Tests 04/14/18 04/14/18 04/14/18 01:49 02:00 02:00 WBC 10.2 RBC 4.97 Hgb 12.4 Hct 38.5 L MCV 77.5 L MCH 25.1 L MCHC Differential 32.3 RDW 15.7 Plt Count 254 MPV 9.2 Neutrophils % 61.9 Lymphocytes % 28.0 Monocytes % 4.0 Eosinophils % 5.8 H Basophils % 0.3 Sodium 139 Potassium 3.9 Chloride 105 Carbon Dioxide 24.4 Anion Gap 13.5 BUN 16 Creatinine 0.8 Est GFR ( Amer) > 60.0 Est GFR (Non-Af Amer) > 60.0 BUN/Creatinine Ratio 20.0 Glucose 102 POC Glucose 100 Calcium 9.7 Phosphorus 3.8 Magnesium 2.0 Total Bilirubin 0.4 AST 13 ALT 8 Alkaline Phosphatase 92 Total Protein 7.9 Albumin 4.2 Globulin 3.7 Albumin/Globulin Ratio 1.1 Amylase 56 Lipase 17 ED Septic Shock - . Is Septic Shock (SBP<90, OR Lactate>4 mmol\L) present?: No - <6hrs of presentation: Vital Signs: Vital Signs - 8 hr 04/14/18 01:05 Temp 98.1 F HR 89 RR 18 BP 137/72 O2 Sat % 97 ED Reassessment (Disposition) - Reassessment Reassessment Condition:: Improved - Diagnosis Diagnosis:: Nausea and vomiting Gastritis rule out h. pylori infection - Aftercare/Follow up Instructions Aftercare/Follow-Up Instructions:: Refer to Discharge Instructions Notes:: primary to get referred to a GI doctor. call us back in 3 to 5 days for H Pylori results follow a bland diet. no meat. no dairy products. no spicy foods. no greasy, fatty or fried foods. Medication Prescribed:: Zofran 4 mg ODT # 20 Ranitidine 150 mg po bid # 60 - Patient Disposition Discharge/Transfer:: Home Condition at Disposition:: Stable, Improved
--- NOTE | 2018-04-14 09:35 | Diagnostic Imaging Report ---
Exam: Acute abdominal series. HISTORY: Pain. Findings: Multiple views of the abdomen reviewed. The study demonstrates distention of small bowel loops suggestive of ileus. There is evidence of previous cholecystectomy. No acute pulmonic infiltrates identified. Bony structures intact. IMPRESSION: Mild ileus. The study somewhat limited due to patient size.
[2018-04-18 12:43] LABS: H PYLORI IGG SERUM SEE REF. LAB REPORT
[2018-04-18 12:44] LABS: H PYLORI IGA SERUM SEE REF LAB
[2018-04-18 12:45] LABS: H PYLORI IGM SERUM SEE REF LAB
== END 2018-04-14 03:00 | disposition home or self-care (01) ==
LOC: ER 00:54
DX: K29.70 Gastritis, unspecified, without bleeding (principal); Z90.49 Acquired absence of other specified parts of digestive tract; Z98.890 Other specified postprocedural states
CPT/HCPCS: 99284; 96374; 96361; 74019; 36415; 36416; 82948; 86677 ×3; 85025; 82150; 83690; 83735; 84100; 80053; J2405; Z7502

== ENCOUNTER 2018-04-17 22:10 | Emergency (ER) | payer MEDICARE, MEDICAID ==
--- NOTE | 2018-04-17 22:20 | ED Physician Chart ---
ED Chief Complaint/HPI - Patient Information Date Seen:: 04/17/18 Time Seen:: 22:20 Chief Complaint:: Seizure History of Present Illness:: 48 yo female was brought by boyfriend and her son to ER due to seizure like activities occurred 30 minutes ago. Per report, patient had an argument with her boyfriend earlier today due to a recent cancellation of wedding. Patient went to her daughter's place and used marijuana. Patient then drove back to her boyfriend's. Patient was then found having seizure like activities in the car by boyfriend. At ER, patient was screaming and hyperventilating with unclear speech. Patient was tachycardiac HR 113, BP 126/107. Ativan 2mg IM was given, followed by Ativan 2mg IV. Patient became calmer. Allergies:: Allergies Allergy/AdvReac Type Severity Reaction Status Date / Time No Known Allergies Allergy Verified 04/14/18 01:09 ED Review of Systems - Review of Systems General/Constitutional: No fever Skin: No bruising Head: No headache ENT: No nasal drainage Neck: No neck pain Cardio Vascular: No chest pain Pulmonary: No SOB GI: No nausea, No vomiting Musculoskeletal: No bone or joint pain Psychiatric: Anxiety Neurological: No focal symptoms ED Past Medical History - Past Medical History Past Medical History: DM Social History: Smoker, No Alcohol, No Drug Use Surgical History: Cholecystectomy, , other (Right knee surgery) Family Medical History - Family Member Mother History Unknown: Yes Hx Family Hypertension: Yes Hx Family Diabetes: Yes ED Physical Exam - Physical Examination General/Constitutional: Awake Head: Atraumatic Eyes: PERRL Skin: No ecchymosis ENMT: Nasal exam nl Neck: No nuchal rigidity Respiratory: No Wheeze/Rhonchi/Rales Cardio Vascular: RRR, No murmur, gallop, rubs, NL S1 S2 GI: No tenderness/rebounding/guarding Extremities: normal strength in all extremities Other Neuro/Psych comments:: Patient had stuttered speech pattern. No focal neurological deficit. Follow commands. ED Labs/Radiology/EKG Results - Lab Results Results: Laboratory Last Values WBC 12.6 Th/cmm (4.8-10.8) H 04/17/18 22:30 RBC 4.85 Mil/cmm (3.80-5.10) 04/17/18: Hgb 12.4 gm/dL (12-16) 04/17/18: Hct 37.6 % (41.0-60) L 04/17/18: MCV 77.5 fl (81-100) L 04/17/18: MCH 25.5 pg (27.0-31.0) L 04/17/18: MCHC Differential 32.9 pg (28.0-36.0) 04/17/18: RDW 15.7 % (11.5-20.0) 04/17/18: Plt Count 279 Th/cmm (150-400) 04/17/18: MPV 9.1 fl 04/17/18: Neutrophils % 49.7 % (40.0-80.0) 04/17/18: Lymphocytes % 37.2 % (20.0-50.0) 04/17/18: Monocytes % 6.5 % (2.0-10.0) 04/17/18: Eosinophils % 5.5 % (0.0-5.0) H 04/17/18: Basophils % 1.1 % (0.0-2.0) 04/17/18: Sodium 140 mEq/L (136-145) 04/17/18: Potassium 4.1 mEq/L (3.5-5.1) 04/17/18: Chloride 106 mEq/L (98-107) 04/17/18: Carbon Dioxide 22.9 mEq/L (21.0-31.0) 04/17/18: Anion Gap 15.2 (7.0-16.0) 04/17/18: BUN 16 mg/dL (7-25) 04/17/18: Creatinine 0.9 mg/dL (0.6-1.2) 04/17/18 22: Est GFR ( Amer) > 60.0 ml/min (>90) 04/17/18 22: Est GFR (Non-Af Amer) > 60.0 ml/min 04/17/18 22: BUN/Creatinine Ratio 17.8 04/17/18 22:30 Glucose 155 mg/dL (70-105) H 04/17/18 22:30 POC Glucose 151 MG/DL (70 - 105) H 04/17/18 22: Whole Bld Lactic Acid 3.79 mmol/L (0.60-1.99) H* 04/17/18 22: Calcium 9.4 mg/dL (8.6-10.3) 04/17/18 22: Total Bilirubin 0.3 mg/dL (0.3-1.0) 04/17/18 22:30 AST 13 U/L (13-39) 04/17/18 22: ALT 9 U/L (7-52) 04/17/18 22: Alkaline Phosphatase 87 U/L (34-104) 04/17/18 22: Troponin I < 0.01 ng/mL (0.01-0.05) L 04/17/18: B-Natriuretic Peptide 62.5 pg/mL (5.0-100.0) 04/17/18 22: Total Protein 7.7 gm/dL (6.0-8.3) 04/17/18 22: Albumin 4.1 gm/dL (3.7-5.3) 04/17/18: Globulin 3.6 gm/dL 04/17/18 22: Albumin/Globulin Ratio 1.1 (1.0-1.8) 04/17/18 22:30 Serum , Qual NEGATIVE (NEGATIVE) 04/17/18 22: Urine Source MIDSTREAM 04/17/18 23: Urine Color YELLOW 04/17/18 23: Urine Clarity CLEAR (CLEAR) 04/17/18 23: Urine pH 6.0 (4.6 - 8.0) 04/17/18 23:30 Ur Specific [place] >= 1.030 (1.005-1.030) 04/17/18 23: Urine Protein NEGATIVE mg/dL (NEGATIVE) 04/17/18 23: Urine Glucose (UA) NEGATIVE mg/dL (NEGATIVE) 04/17/18 23: Urine Ketones NEGATIVE mg/dL (NEGATIVE) 04/17/18 23: Urine Blood NEGATIVE (NEGATIVE) 04/17/18 23: Urine Nitrate NEGATIVE (NEGATIVE) 04/17/18 23:30 Urine Bilirubin NEGATIVE (NEGATIVE) 04/17/18 23:30 Urine Urobilinogen 0.2 E.U./dL (0.2 - 1.0) 04/17/18 23:30 Ur Leukocyte Esterase NEGATIVE (NEGATIVE) 04/17/18 23:30 Urine Opiates Screen NEGATIVE (NEGATIVE) 04/17/18 23:30 Urine Methadone Screen NEGATIVE (NEGATIVE) 04/17/18 23:30 Ur Barbiturates Screen NEGATIVE (NEGATIVE) 04/17/18 23:30 Ur Tricyclics Screen NEGATIVE (NEGATIVE) 04/17/18 23:30 Ur Phencyclidine Scrn NEGATIVE (NEGATIVE) 04/17/18 23:30 Amphetamines Screen NEGATIVE (NEGATIVE) 04/17/18 23:30 U Methamphetamines Scrn NEGATIVE (NEGATIVE) 04/17/18 23:30 U Benzodiazepines Scrn NEGATIVE (NEGATIVE) 04/17/18 23:30 U Cocaine Metab Screen NEGATIVE (NEGATIVE) 04/17/18 23:30 U Cannabinoids Screen POSITIVE (NEGATIVE) H 04/17/18 23:30 Ethyl Alcohol < 10 mg/dL (0-10) 04/17/18 22:30 - Radiology Results Results: CT head without contrast: no intracranial hemorrhage, mass effect and midline shift. CXR: no focal consolidation. - EKG Interpretations EKG Time:: 22:27 Rate & Rhythm: 109 bpm, sinus tachycardia [place]: Normal axis Comments:: No ST, T waves elevation ED Assessment - Assessment General Assessment: Panic attack Leukocytosis Elevated lactic acid Dehydration Marijuana use Although patient's dramatic speech pattern and movements of face and bilateral upper extremities pointing to possibility of Grand mal seizure, but the diagnosis was less likely due to the fact that patient remained conscious and followed commands. Assessment/Comments:: Ativan 2mg IM Ativan 2mg IV CT head without contrast CBC, CMP, BNP, Trop, lactic acid UA, urine drug screen CXR, EKG Levaquin 500mg IV NS 1L IV bolus Ordered to repeat CBC and lactic acid at 2:00am to re-evaluate the response to IV antibiotics and IV fluid treatment. NS 1L IV bolus, 1/4 unfinished ED Septic Shock - . Is Septic Shock (SBP<90, OR Lactate>4 mmol\L) present?: No ED Reassessment (Disposition) - Reassessment Reassessment:: T98.1, BP122/75, HR84, O2 sat 97% on room air at 01:25. However, encouraged by patient's boyfriend to get MRI brain at an outside hospital, patient insisted leaving against medical advice. It was unclear how much decision capability the patient had at this time due to Ativan received earlier. Despite the fact that the supervisor metalizing Lorie spoke with patient and her boyfriend about getting MRI at an affiliated hospital during daytime, patient's boyfriend and patient still wanted to leave and both signed AMA. Patient walked out of ER with her boyfriend. Reassessment Condition:: Improved - Patient Disposition Discharge/Transfer:: Against Medical Advice
[2018-04-17 22:42] LABS: % BASOPHILS 1.1 % (0.0-2.0); % EOSINOPHILS 5.5 % (0.0-5.0); % LYMPHOCYTES 37.2 % (20.0-50.0); % MONOCYTES 6.5 % (2.0-10.0); % NEUTROPHILS 49.7 % (40.0-80.0); BASOPHILE ABSOLUTE 0.1 Th/cumm (0-0.2); EOSINOPHILE ABSOLUTE 0.7 Th/cmm (0.1-0.4); HEMATOCRIT 37.6 % (41.0-60); HEMOGLOBIN 12.4 gm/dL (12-16); LYMPHOCYTE ABSOLUTE 4.7 Th/cmm (1.5-3.0); MEAN CELL VOLUME 77.5 fl (81-100); MEAN CORPUSCULAR HEMOGLOBIN 25.5 pg (27.0-31.0); MEAN CORPUSCULAR HGB CONC 32.9 pg (28.0-36.0); MEAN PLATELET VOLUME 9.1 fl; MONOCYTE ABSOLUTE 0.8 Th/cmm (0.3-1.0); NEUTROPHILE ABSOLUTE 6.3 Th/cmm (1.8-8.0); PLATELET COUNT 279 Th/cmm (150-400); RED BLOOD COUNT 4.85 Mil/cmm (3.80-5.10); RED CELL DISTRIBUTION WIDTH 15.7 % (11.5-20.0); WHITE BLOOD COUNT 12.6 Th/cmm (4.8-10.8)
[2018-04-17 22:52] LABS: ALB/GLOB RATIO 1.1 (1.0-1.8); ALBUMIN 4.1 gm/dL (3.7-5.3); ALKALINE PHOSPHATASE 87 U/L (34-104); ANION GAP 15.2 (7.0-16.0); BILIRUBIN,TOTAL 0.3 mg/dL (0.3-1.0); BUN - UREA NITROGEN 16 mg/dL (7-25); CALCIUM SERUM 9.4 mg/dL (8.6-10.3); CARBON DIOXIDE 22.9 mEq/L (21.0-31.0); CHLORIDE 106 mEq/L (98-107); CREATININE - SERUM 0.9 mg/dL (0.6-1.2); GFR AFRICAN-AMERICAN > 60.0 ml/min (>90); GFR NON AFRICAN-AMERICAN > 60.0 ml/min; GLUCOSE 155 mg/dL (70-105); POTASSIUM SERUM 4.1 mEq/L (3.5-5.1); SGOT 13 U/L (13-39); SGPT/ALT 9 U/L (7-52); SODIUM SERUM 140 mEq/L (136-145); TOTAL PROTEIN,SERUM 7.7 gm/dL (6.0-8.3)
[2018-04-17] MEDS ORDERED: Sodium Chloride 0.9% 1,000 ML IV ONE (22:53)
[2018-04-17] MEDS ORDERED: Levofloxacin 500mg/100mL 500 MG/100 ML BAG IV ONE ×2 (23:22→23:26)
[2018-04-17 23:38] LABS: URINE SOURCE MIDSTREAM
[2018-04-17 23:40] LABS: URINE BILIRUBIN NEGATIVE (NEGATIVE); URINE BLOOD NEGATIVE (NEGATIVE); URINE GLUCOSE (UA) NEGATIVE (NEGATIVE); URINE KETONE NEGATIVE (NEGATIVE); URINE LEUKOCYTE ESTERASE NEGATIVE (NEGATIVE); URINE NITRATE NEGATIVE (NEGATIVE); URINE PROTEIN NEGATIVE (NEGATIVE); URINE UROBILINOGEN 0.2 E.U./dL (0.2 - 1.0)
[2018-04-17 23:47] LABS: AMPHETAMINE URINE NEGATIVE (NEGATIVE); BARBITURATES URINE NEGATIVE (NEGATIVE); COCAINE METABOLITE QUAL URINE NEGATIVE (NEGATIVE); METHADONE URINE NEGATIVE (NEGATIVE); METHAMPHETAMINES QUAL URINE NEGATIVE (NEGATIVE); OPIATES (MORPHINE) QUAL. URINE NEGATIVE (NEGATIVE); PHENCYCLIDINE (PCP) URINE NEGATIVE (NEGATIVE); TRICYCLICS (TCA) QUAL. URINE NEGATIVE (NEGATIVE)
[2018-04-17 23:48] LABS: BENZODIAZEPINES QUAL URINE NEGATIVE (NEGATIVE); CANNABINOID THC POSITIVE (NEGATIVE); URINE CLARITY CLEAR (CLEAR); URINE COLOR YELLOW; URINE MICROSCOPIC INDICATED? NO
[2018-04-18] MEDS ORDERED: Sodium Chloride 0.9% 1,000 ML IV ONE (00:58)
--- NOTE | 2018-04-18 08:36 | Diagnostic Imaging Report ---
CHEST X-RAY: AP view INDICATION: Shortness of breath COMPARISON: 03/14/2018 FINDINGS: There is no focal consolidation or pleural effusions The heart is normal in size. The osseous structures demonstrate no acute abnormalities. IMPRESSION: No focal airspace consolidation identified.
--- NOTE | 2018-04-18 08:48 | Diagnostic Imaging Report ---
Head CT without intravenous contrast Indication: Seizure Comparison: None Technique: Axial images were obtained from the vertex to the skull base without IV contrast. Coronal reconstructions were made. Total DLP: 1373, [id number] FINDINGS: Images of the brain obtained without contrast demonstrate no evidence of an acute hemorrhage. Exam is limited due to patient positioning. The ventricles and basal cisterns are patent. No mass effect or midline shift. No evidence of a skull fracture or focal soft tissue swelling. There is mucosal thickening of the paranasal sinuses. IMPRESSION: No acute intracranial abnormality.
== END 2018-04-18 01:55 | disposition left against medical advice (07) ==
LOC: ER 22:10
DX: F41.0 Panic disorder [episodic paroxysmal anxiety] (principal); E86.0 Dehydration; D72.829 Elevated white blood cell count, unspecified; R74.0 Nonspecific elevation of levels of transaminase and lactic acid dehydrogenase [LDH]; F12.90 Cannabis use, unspecified, uncomplicated; E11.9 Type 2 diabetes mellitus without complications; F17.200 Nicotine dependence, unspecified, uncomplicated; Z90.49 Acquired absence of other specified parts of digestive tract; Z98.890 Other specified postprocedural states
CPT/HCPCS: 99284; 96365; 96372; 96375; 93005; 71045; 70450; 84484; 83880; 36415; 36416; 82948; 83605; 80307; 85025; 81003; 80320; 84703; 80053; 87040; J2060 ×2; J1956; J7030; Z7502

== ENCOUNTER 2018-06-16 15:53 | Emergency (ER) | payer MEDICAID, MEDICARE ==
--- NOTE | 2018-06-16 16:44 | ED Physician Chart ---
ED Chief Complaint/HPI - Patient Information Date Seen:: 06/16/18 Time Seen:: 16:00 Chief Complaint:: flu symptoms History of Present Illness:: this is a 48 yo female with flu-like symptoms and unable to sleep with trouble breathing. she is diabetic and smokes. Allergies:: Allergies Allergy/AdvReac Type Severity Reaction Status Date / Time No Known Allergies Allergy Verified 06/16/18 16:10 Vitals:: Vital Signs - 8 hr 06/16/18 15:56 Temp 98.6 F HR 102 RR 18 BP 106/72 Historian:: Patient Review:: Nurse's Note Reviewed, Old Chart Reviewed ED Review of Systems - Review of Systems General/Constitutional: Fever, Chills, No weight loss, Weakness, No diaphoresis , No edema, No loss of appetite Skin: No skin lesions, No rash, No bruising Head: Headache, No light-headedness Eyes: No loss of vision, No pain, No diplopia ENT: No earache, No nasal drainage, No sore throat, No tinnitus Neck: No neck pain, No swelling, No thyromegaly, No stiffness, No mass noted Cardio Vascular: No chest pain, No palpitations, No PND, No orthopnea, No edema Pulmonary: No SOB, No cough, No sputum, No wheezing GI: No nausea, No vomiting, No diarrhea, No pain, No melena, No hematochezia, No constipation, No hematemesis G/U: No dysuria, No frequency, No hematuria Musculoskeletal: No bone or joint pain, No back pain, No muscle pain Endocrine: No polyuria, No polydipsia Psychiatric: No prior psych history, No depression, No anxiety, No suicidal ideation Hematopoietic: No bruising, No lymphadenopathy Allergic/Immuno: No urticaria, No angioedema Neurological: No syncope, No focal symptoms, No weakness, No paresthesia, No headache, No seizure, No dizziness, No confusion, No vertigo ED Past Medical History - Past Medical History Obtainable: Yes Past Medical History: HTN, DM, Asthma/COPD Family History: None Social History: Smoker, No Alcohol, No Drug Use, Surgical History: other (right knee surgery) Psychiatricy History: None Medication: Reviewed Family Medical History - Family Member Mother History Unknown: Yes Ethnicity: Hx Family Hypertension: Yes Hx Family Diabetes: Yes ED Physical Exam - Physical Examination General/Constitutional: Awake, Well-developed, well-nourished, Alert, No distress, GCS 15, Non-toxic appearing, Ambulatory Head: Atraumatic Eyes: Lids, conjuctiva normal, PERRL, EOMI Skin: Nl inspection, No rash, No skin lesions, No ecchymosis, Well hydrated, No lymphadenopathy ENMT: External ears, nose nl, Nasal exam nl, Lips, teeth, gums nl Neck: Nontender, Full ROM w/o pain, No JVD, No nuchal rigidity, No bruit, No mass, No stridor Respiratory: Nl effort/Exclusion, Clear to Auscultation, No Wheeze/Rhonchi/ Rales (bilateral wheezes and rhonchi) Cardio Vascular: RRR, No murmur, gallop, rubs, NL S1 S2 GI: No tenderness/rebounding/guarding, No organomegaly, No hernia, Normal BS's, Nondistended, No mass/bruits, No McBurney tenderness : No CVA tenderness Extremities: No tenderness or effusion, Full ROM, normal strength in all extremities, No edema, Normal digits & nails Neuro/Psych: Alert/oriented, DTR's symmetric, Normal sensory exam, Normal motor strength, Judgement/insight normal, Mood normal, Normal gait, No focal deficits Misc: Normal back, No paraspinal tenderness ED Assessment - Assessment General Assessment: bronchitis ED Septic Shock - . Is Septic Shock (SBP<90, OR Lactate>4 mmol\L) present?: No - <6hrs of presentation: Vital Signs: Vital Signs - 8 hr 06/16/18 15:56 Temp 98.6 F HR 102 RR 18 BP 106/72 ED Reassessment (Disposition) - Reassessment Reassessment Condition:: Unchanged - Diagnosis Diagnosis:: acute bronchitis - Aftercare/Follow up Instructions Aftercare/Follow-Up Instructions:: Counseled pt regarding lab results/diagnosis & need follow up, Refer to Discharge Instructions, Counseled pt & family regarding lab results/diagnosis & need follow up - Patient Disposition Discharge/Transfer:: Home Condition at Disposition:: Unchanged
[2018-06-16 17:16] LABS: % BASOPHILS 0.5 % (0.0-2.0); % EOSINOPHILS 2.3 % (0.0-5.0); % LYMPHOCYTES 14.8 % (20.0-50.0); % MONOCYTES 7.3 % (2.0-10.0); % NEUTROPHILS 75.1 % (40.0-80.0); BASOPHILE ABSOLUTE 0.1 Th/cumm (0-0.2); EOSINOPHILE ABSOLUTE 0.3 Th/cmm (0.1-0.4); HEMATOCRIT 37.1 % (41.0-60); HEMOGLOBIN 12.2 gm/dL (12-16); LYMPHOCYTE ABSOLUTE 1.7 Th/cmm (1.5-3.0); MEAN CELL VOLUME 78.4 fl (81-100); MEAN CORPUSCULAR HEMOGLOBIN 25.9 pg (27.0-31.0); MEAN PLATELET VOLUME 8.8 fl; MONOCYTE ABSOLUTE 0.8 Th/cmm (0.3-1.0); NEUTROPHILE ABSOLUTE 8.3 Th/cmm (1.8-8.0); PLATELET COUNT 252 Th/cmm (150-400); RED BLOOD COUNT 4.74 Mil/cmm (3.80-5.10); RED CELL DISTRIBUTION WIDTH 14.7 % (11.5-20.0); WHITE BLOOD COUNT 11.2 Th/cmm (4.8-10.8)
[2018-06-16 17:35] LABS: INR 0.87 (0.5-1.4); PROTHROMBIN TIME (TEST) 9.2 SECONDS (9.5-11.5)
[2018-06-16 17:38] LABS: ALB/GLOB RATIO 1.2 (1.0-1.8); ALBUMIN 3.8 gm/dL (3.7-5.3); ALKALINE PHOSPHATASE 71 U/L (34-104); ANION GAP 12.9 (7.0-16.0); BILIRUBIN,TOTAL 0.4 mg/dL (0.3-1.0); BUN - UREA NITROGEN 8 mg/dL (7-25); CALCIUM SERUM 9.3 mg/dL (8.6-10.3); CARBON DIOXIDE 22.8 mEq/L (21.0-31.0); CHLORIDE 102 mEq/L (98-107); CREATININE - SERUM 0.7 mg/dL (0.6-1.2); GFR AFRICAN-AMERICAN > 60.0 ml/min (>90); GFR NON AFRICAN-AMERICAN > 60.0 ml/min; GLUCOSE 123 mg/dL (70-105); POTASSIUM SERUM 3.7 mEq/L (3.5-5.1); SGOT 8 U/L (13-39); SGPT/ALT 8 U/L (7-52); SODIUM SERUM 134 mEq/L (136-145); TOTAL PROTEIN,SERUM 7.1 gm/dL (6.0-8.3)
== END 2018-06-16 17:52 | disposition home or self-care (01) ==
LOC: ER 15:53
DX: J20.9 Acute bronchitis, unspecified (principal); J44.9 Chronic obstructive pulmonary disease, unspecified; I10 Essential (primary) hypertension; E11.9 Type 2 diabetes mellitus without complications; F17.200 Nicotine dependence, unspecified, uncomplicated
CPT/HCPCS: 36415-UA; 80053-TC; 82948-90; 84443-TC; 84484-TC; 85025-TC; 85610-TC; Z7502

== ENCOUNTER 2018-06-20 19:27 | Emergency (ER) | payer MEDICAID ==
[2018-06-20] MEDS ORDERED: APAP/Codeine 300 mg/30 mg Tab PO STA (20:33)
[2018-06-20] MEDS ORDERED: APAP/Codeine 300 mg/30 mg Tab ONE (20:35)
--- NOTE | 2018-06-20 21:51 | ED Physician Chart ---
ED Chief Complaint/HPI - Patient Information Date Seen:: 06/20/18 Time Seen:: 20:00 Chief Complaint:: Fever History of Present Illness:: onset x 2 days of fever, cough, S/T, Sinus H/As, E/As, and congestion; pt denies trauma, LOC, ALOC, AMS, visual or gait changes, neck pain, weakness, dizziness, paresthesias, vertigo, hearing loss, decreased hearing, tinnitus, C/P , SOB, Abd. 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 BONDING; LNMP: 06/18/18; pt denies Allergies:: Allergies Allergy/AdvReac Type Severity Reaction Status Date / Time No Known Allergies Allergy Verified 06/16/18 16:10 Vitals:: Vital Signs - 8 hr 06/20/18 20:10 Temp 98.8 F HR 87 RR 18 BP 145/67 O2 Sat % 100 Historian:: Patient, Family Member Review:: Nurse's Note Reviewed, Old Chart Reviewed ED Review of Systems - Review of Systems General/Constitutional: Fever, No chills, No weight loss, No weakness, No diaphoresis, No edema, No loss of appetite Skin: No skin lesions, No rash, No bruising Head: No headache, No light-headedness Eyes: No loss of vision, No pain, No diplopia ENT: Earache, Nasal drainage, Sore throat, No tinnitus Neck: No neck pain, No swelling, No thyromegaly, No stiffness, No mass noted Cardio Vascular: No chest pain, No palpitations, No PND, No orthopnea, No edema Pulmonary: No SOB, Cough, No sputum, No wheezing GI: No nausea, No vomiting, No diarrhea, No pain, No melena, No hematochezia, No constipation, No hematemesis G/U: No dysuria, No frequency, No hematuria, No nacturia Web Engineer: No vaginal discharge, No abnormal vaginal bleed, No contraction Musculoskeletal: No bone or joint pain, No back pain, No muscle pain Endocrine: No polyuria, No polydipsia Psychiatric: No prior psych history, No depression, No anxiety, No suicidal ideation, No homicidal ideation, No auditory hallucination, No visual hallucination Hematopoietic: No bruising, No lymphadenopathy Allergic/Immuno: No urticaria, No angioedema Neurological: No syncope, No focal symptoms, No weakness, No paresthesia, Headache, No seizure, No dizziness, No confusion, No vertigo ED Past Medical History - Past Medical History Obtainable: Yes Past Medical History: HTN, DM Family History: Diabetes Melitus, HTN Social History: Non Smoker, No Alcohol, No Drug Use, Surgical History: Cholecystectomy, Psychiatricy History: None Medication: Reviewed Family Medical History - Family Member Mother History Unknown: Yes Ethnicity: Hx Family Hypertension: Yes Hx Family Diabetes: Yes ED Physical Exam - Physical Examination General/Constitutional: Awake, Well-developed, well-nourished, Alert, No distress, GCS 15, Non-toxic appearing, Ambulatory Head: Atraumatic Eyes: Lids, conjuctiva normal, PERRL, EOMI Skin: Nl inspection, No rash, No skin lesions, No ecchymosis, Well hydrated, No lymphadenopathy ENMT: External ears, nose nl, Nasal exam nl, Lips, teeth, gums nl, Tonsils nl Other ENMT comments:: + Maxillary Sinus Tenderness; + Nasal Congestion; Ears: TMs: Dull and Injected; Pharynx: Injected; no exudates; no abscesses; no FBs; no airway obstruction Neck: Nontender, Full ROM w/o pain, No JVD, No nuchal rigidity, No bruit, No mass, No stridor Other Neck comments:: supple; no meningeal signs; no cervical tenderness Respiratory: Nl effort/Exclusion, Clear to Auscultation, No Wheeze/Rhonchi/Rales Cardio Vascular: RRR, No murmur, gallop, rubs, NL S1 S2, Carotid/Femoral/Distal pulses equal bilaterally GI: No tenderness/rebounding/guarding, No organomegaly, No hernia, Normal BS's, Nondistended, No mass/bruits, No McBurney tenderness, Rectum exam nl Other GI comments:: no pulsatile masses : No CVA tenderness Extremities: No tenderness or effusion, Full ROM, normal strength in all extremities, No edema, Normal digits & nails Neuro/Psych: Alert/oriented, DTR's symmetric, Normal sensory exam, Normal motor strength, Judgement/insight normal, Mood normal, Normal gait, No focal deficits Other Neuro/Psych comments:: no focal signs Misc: Normal back, No paraspinal tenderness ED Labs/Radiology/EKG Results - Lab Results Comments:: deferred by pt - Radiology Results Comments:: X-Rays: deferred by pt ED Septic Shock - . Is Septic Shock (SBP<90, OR Lactate>4 mmol\L) present?: No - <6hrs of presentation: Vital Signs: Vital Signs - 8 hr 06/20/18 20:10 Temp 98.8 F HR 87 RR 18 BP 145/67 O2 Sat % 100 ED Reassessment (Disposition) - Reassessment Reassessment:: pt tolerated po fluids well in ER; pt is asymptomatic upon discharge Reassessment Condition:: Improved - Diagnosis Diagnosis:: Sinus Headaches; Headaches; Vascular Cephalgia; Congestion; Sinusitis; Earaches ; Otitis Media; Sore Throat; Pharyngitis; Cough; Bronchitis; Fever; URI; HTN; DM - Aftercare/Follow up Instructions Aftercare/Follow-Up Instructions:: Counseled pt regarding lab results/diagnosis & need follow up, Refer to Discharge Instructions, Counseled pt & family regarding lab results/diagnosis & need follow up Medication Prescribed:: Rx: Amoxicillin 500mg po tid x 10 days; Tylenol #3: one Tablet po tid prn pain, H/As, and/or fever (#10); Cool Mist Vaporizer; Salt Water Gargles; encourage fluids - Patient Disposition Discharge/Transfer:: Home Condition at Disposition:: Stable, Improved (RTER prn if existing s/s reoccur and/or get worse and/or any other new s/s occur; ACIs given for all above Dx; Refer to ENT Specialist/Neurologist/Parts Counterperson [facility]OW[facility]; F/U with PMD in one day or prn; RTER prn if concerned)
== END 2018-06-20 20:42 | disposition home or self-care (01) ==
LOC: ER 19:27
DX: G44.1 Vascular headache, not elsewhere classified (principal); J40 Bronchitis, not specified as acute or chronic; J06.9 Acute upper respiratory infection, unspecified; J32.9 Chronic sinusitis, unspecified; H66.90 Otitis media, unspecified, unspecified ear; I10 Essential (primary) hypertension; E11.9 Type 2 diabetes mellitus without complications; Z90.49 Acquired absence of other specified parts of digestive tract; Z98.890 Other specified postprocedural states
CPT/HCPCS: Z7502; Z7610

== ENCOUNTER 2018-12-13 19:49 | Emergency (ER) | payer MEDICARE, MEDICAID ==
--- NOTE | 2018-12-13 20:40 | ED Physician Chart ---
ED Chief Complaint/HPI - Patient Information Date Seen:: 12/13/18 Time Seen:: 20:15 Chief Complaint:: possible foreign body right foot History of Present Illness:: Patient stepped on about 1 inch size piece of broken glass one half weeks ago. She complains of continuing pain. Allergies:: Allergies Allergy/AdvReac Type Severity Reaction Status Date / Time No Known Allergies Allergy Verified 06/16/18 16:10 Vitals:: Vital Signs - 8 hr 12/13/18 20:05 Temp 98.8 F HR 85 RR 18 BP 116/59 O2 Sat % 97 Historian:: Patient Review:: Nurse's Note Reviewed ED Review of Systems - Review of Systems General/Constitutional: No fever, No chills Skin: Skin lesions Head: No headache Eyes: No loss of vision ENT: No earache Neck: No neck pain Cardio Vascular: No chest pain, No palpitations Pulmonary: No SOB GI: No nausea, No vomiting, No diarrhea G/U: No dysuria Musculoskeletal: No bone or joint pain Endocrine: No polyuria Psychiatric: No prior psych history Hematopoietic: No bruising Allergic/Immuno: No urticaria ED Past Medical History - Past Medical History Past Medical History: Other (hypoglycemia) Family History: None Social History: Smoker, No Alcohol, Other (ABOUT 2 cigarettes a day) Surgical History: other (tubal ligation; right knee replacement; 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) Psychiatricy History: None Medication: None Family Medical History - Family Member Mother History Unknown: Yes Ethnicity: Hx Family Hypertension: Yes Hx Family Diabetes: Yes ED Physical Exam - Physical Examination General/Constitutional: Awake, Well-developed, well-nourished Head: Atraumatic Eyes: Lids, conjuctiva normal Other Skin comments:: 1 cm of induration and tenderness proximal arch right foot ENMT: External ears, nose nl Neck: No nuchal rigidity Respiratory: Nl effort/Exclusion, Clear to Auscultation Cardio Vascular: RRR, No murmur, gallop, rubs GI: No tenderness/rebounding/guarding : No CVA tenderness Other Extremities comments:: See above under skin Neuro/Psych: No focal deficits Misc: No paraspinal tenderness ED Labs/Radiology/EKG Results - Radiology Results Results: X-ray right foot negative about ED Assessment - Assessment General Assessment: Patient has a 1 cm area of induration and tenderness proximal sole right foot very suspicious for retained foreign body. X-ray was negative. A negative X- ray does not rule out a very small retained foreign body. Patient requested to follow-up with her private physician for possible referral to a general surgeon. The plan was to send a disc of the patient's x-ray with her but they eloped from the emergency department after being told the x-ray was negative for foreign body and before she was given aftercare instructions. Plan was also to give patient a tetanus booster that she eloped before he could be given. ED Septic Shock - . Is Septic Shock (SBP<90, OR Lactate>4 mmol\L) present?: No - <6hrs of presentation: Vital Signs: Vital Signs - 8 hr 12/13/18 20:05 Temp 98.8 F HR 85 RR 18 BP 116/59 O2 Sat % 97 ED Reassessment (Disposition) - Reassessment Reassessment Condition:: Unchanged - Diagnosis Diagnosis:: Possible glass foreign body right foot - Patient Disposition Discharge/Transfer:: Elope/AWOL Condition at Disposition:: Stable, Unchanged
--- NOTE | 2018-12-14 07:46 | Diagnostic Imaging Report ---
Right foot (3 views) HISTORY: Pain, question foreign body No acute bony abnormalities are seen. No fractures. Minimal spur formation noted off the plantar aspect of the posterior calcaneus. Spur formation also noted off the dorsal aspect of the posterior calcaneus. No definite radiopaque foreign bodies are seen. IMPRESSION: 1. No acute bony amenities 2. No radiopaque foreign bodies identified at this time 3. Calcaneal spur formation
== END 2018-12-13 20:50 | disposition left against medical advice (07) ==
LOC: ER 19:49
DX: S99.821A Other specified injuries of right foot, initial encounter (principal); Y28.0XXA Contact with sharp glass, undetermined intent, initial encounter; Y93.89 Activity, other specified; Y92.89 Other specified places as the place of occurrence of the external cause; Y99.8 Other external cause status
CPT/HCPCS: 73620-TC-RT; Z7502